=== PATIENT | female | born 1995 | race Caucasian/White ===

== ENCOUNTER 2016-11-20 22:23 | Emergency (ER) | payer MEDICAID ==
[2016-11-20] MEDS ORDERED: Sodium Chloride 0.9% 10 ML Syringe FLUSH PRN (22:30)
[2016-11-20] MEDS ORDERED: Metoclopramide 10 MG/2 ML SDV IVPUSH ONE (22:31)
[2016-11-20] MEDS ORDERED: Sodium Chloride 0.9% 1,000 ML IV SCH (22:45)
[2016-11-20 23:38] LABS: CHLORIDE,CL 103 mmol/L (98-107); SODIUM,NA 137 mmol/L (136-145)
--- NOTE | 2016-11-20 23:39 | EDM.PDOC ---
ED HPI GENERAL MEDICAL PROBLEM - General Chief Complaint: General Stated Complaint: FLU-LIKE SYMPTOMS Time Seen by Provider: 11/20/16 22:26 Source of Information: Reports: Patient, EMS notes reviewed, RN, RN notes reviewed History Limitations: Reports: No limitations - History of Present Illness INITIAL COMMENTS - FREE TEXT/NARRATIVE: Patient is brought to the ED at [facility] with a one day history of vomiting, nausea, chest pain. Patient has not taken any medications for her symptoms. She felt her symptoms would resolve on their own. She states she has vomited several times. No diarrhea. No actual abdominal pain. No focal neurological deficits. No recent travel. Patient was started yesterday on THRT. She takes 50 mg IM every two weeks. The patient states her symptoms began before she started on the hormone replacement. Onset: gradual Onset Date: 11/19/16 - Related Data Allergies Allergy/AdvReac Type Severity Reaction Status Date / Time amitriptyline Allergy Cannot Verified 11/20/16 22:28 Remember Home Meds: Home Meds Acetaminophen [Tylenol] 325 mg PO QID PRN 01/28/16 [History] Citalopram [Celexa] 30 mg PO DAILY 01/28/16 [History] Divalproex Sodium [Depakote] 750 mg PO BEDTIME 01/28/16 [History] Nortriptyline 25 mg PO BEDTIME 01/28/16 [History] Propranolol [Inderal] 10 mg PO BID 01/28/16 [History] buPROPion [Wellbutrin] 100 mg PO DAILY 01/28/16 [History] Baclofen 10 mg PO TID #30 tablet 05/16/16 [Rx] Naproxen [Naproxen] 500 mg PO BID 06/02/16 [History] tiZANidine [Zanaflex] 2 mg PO DAILY 06/02/16 [History] Cyclobenzaprine HCl 10 mg PO Q8HR PRN #30 tablet 06/08/16 [Rx] Citalopram [Celexa] 10 mg PO DAILY 08/24/16 [History] Divalproex Sodium [Depakote] 750 mg PO BEDTIME 08/24/16 [History] Nortriptyline 25 mg PO BEDTIME 08/24/16 [History] Propranolol [Inderal] 20 mg PO ONETIME 08/24/16 [History] buPROPion [Wellbutrin] 75 mg PO BEDTIME 08/24/16 [History] Past Medical History HEENT History: Reports: Impaired vision Gastrointestinal History: Reports: Cholelithiasis 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 Musculoskeletal History: Reports: Back pain, chronic Neurological History: Reports: Headaches, chronic Psychiatric History: Reports: Anxiety, Depression, Emotional problems, Suicidal ideation - Past Surgical History GI Surgical History: Reports: Cholecystectomy Social & Family History - Family History Family Medical History: Noncontributory - Tobacco Use Smoking Status *Q: Never Smoker Second Hand Smoke Exposure: Yes - Caffeine Use Caffeine Use: Reports: None - Recreational Drug Use Recreational Drug Use: No ED ROS GENERAL - Review of Systems Review Of Systems: See Below Constitutional: Denies: fever, chills, weakness HEENT: Reports: No symptoms Respiratory: Denies: shortness of breath, cough Cardiovascular: Reports: Chest pain, Lightheadedness. Denies: Palpitations GI/Abdominal: Reports: Nausea, Vomiting. Denies: Abdominal pain, Diarrhea Skin: Reports: no symptoms Neurological: Denies: dizziness, headache, numbness, paresthesia, tingling ED EXAM, GENERAL - Physical Exam Exam: See Below Exam Limited By: No limitations General Appearance: alert, no apparent distress, obese Eye Exam: bilateral eye: EOMI, normal inspection, PERRL Ears: normal external exam, normal canal, hearing grossly normal, normal TMs Ear Exam: bilateral ear: TM normal Nose: normal inspection, normal mucosa Throat/Mouth: Normal inspection, Normal oropharynx, No airway compromise Head: atraumatic, normocephalic Neck: supple Respiratory/Chest: no respiratory distress, lungs clear, normal breath sounds Cardiovascular: normal peripheral pulses, tachycardia GI/Abdominal: soft, no distention, abnormal bowel sounds: (hyperactive) Neurological: alert, oriented Skin Exam: Warm, Dry, Intact, No rash, Cool, Pallor EKG INTERPRETATION EKG Date: 11/20/16 Time: 22:37 Rhythm: NSR Rate (beats/min): 112 [place]: normal P-wave: present QRS: normal ST-T: normal QT: normal OR/PQ Interval: 0.14 Comparison: no change EKG Interpretation Comments: 1. Sinus Tachycardia Course - Vital Signs Last Recorded V/S: Last Vital Signs Temp 37.7 C 11/20/16 22:29 Pulse 111 H 11/20/16 22:29 Resp 22 H 11/20/16 22:29 BP 128/77 11/20/16 22:29 Pulse Ox - Orders/Labs/Meds Orders: Active Orders 24 hr Category Date Time Status EKG 12 Lead [EKG Documentation Completion] [RC] STAT Care 11/20/16 22:30 Active TRICYCLIC ANTIDEPRESSANTS HAYES Stat Lab 11/21/16 23:17 Received Sodium Chloride 0.9% [Normal Saline] 1,000 ml Med 11/20/16 22:45 Active IV ASDIRECTED Sodium Chloride 0.9% [Saline Flush] Med 11/20/16 22:30 Active 10 ml FLUSH ASDIRECTED PRN Peripheral IV Insertion Adult [OM.PC] Routine Oth 11/20/16 22:30 Ordered Medication Orders Sodium Chloride (Normal Saline) 1,000 mls @ 999 mls/hr IV ASDIRECTED NACHO Last Admin: 11/20/16 22:40 Dose: 999 mls/hr Sodium Chloride (Saline Flush) 10 ml FLUSH ASDIRECTED PRN PRN Reason: Keep Vein Open Labs: Laboratory Tests 11/20/16 11/20/16 11/20/16 Range/Units 22:59 22:59 22:59 WBC 16.4 H (4.0-10.0) x10^3/uL RBC 4.85 (4.00-5.50) x10^6/uL Hgb 14.5 (12.0-16.0) g/dL Hct 42.7 (33.0-47.0) % MCV 88.0 (78.0-93.0) fL MCH 29.9 (26.0-32.0) pg MCHC 34.0 (32.0-36.0) g/dL RDW Coeff of Caro 12.6 (10.0-15.0) % Plt Count 306 (130-400) x10^3/uL Neut % (Auto) 88.3 H (50.0-80.0) % Lymph % (Auto) 5.4 L (25.0-50.0) % [place] % (Auto) 5.7 (2.0-11.0) % Eos % (Auto) 0.5 (0.0-4.0) % Baso % (Auto) 0.1 L (0.2-1.2) % Sodium 137 (136-145) mmol/L Potassium 3.8 (3.5-5.1) mmol/L Chloride 103 (98-107) mmol/L Carbon Dioxide 23 (21-32) mmol/L BUN 10 (7-18) mg/dL Creatinine 1.0 (0.55-1.02) mg/dL Est Cr Clr Drug Dosing 90.53 mL/min Estimated GFR (MDRD) > 60 Glucose 111 H (74-106) mg/dL Lactic Acid 1.4 (0.4-2.0) mmol/L Calcium 9.4 (8.5-10.1) mg/dL Corrected Calcium 9.40 (8.5-10.1) mg/dL Total Bilirubin 0.5 (0.2-1.0) mg/dL AST 51 H (15-37) U/L ALT 96 H (14-59) U/L Alkaline Phosphatase 102 (46-116) U/L Creatine Kinase 125 (26-192) U/L Creatine Kinase Index 1.4 (0.0-4.0) % CK-MB (CK-2) 1.7 (0.0-3.6) ng/mL Troponin I < 0.017 (<=0.056) ng/mL C-Reactive Protein 0.7 (<=0.9) mg/dL Total Protein 8.0 (6.4-8.2) g/dL Albumin 4.0 (3.4-5.0) g/dL Globulin 4.0 Albumin/Globulin Ratio 1.00 Amylase 37 (25-115) U/L Lipase 138 (73-393) U/L Urine Color (YELLOW) Urine Appearance (CLEAR) Urine pH (5.0-8.0) Ur Specific [place] Urine Protein (NEGATIVE) mg/dL Urine Glucose (UA) (NEGATIVE) mg/dL Urine Ketones (NEGATIVE) mg/dL Urine Occult Blood (NEGATIVE) Urine Nitrite (NEGATIVE) Urine Bilirubin (NEGATIVE) Urine Urobilinogen (0.2) EU/dL Ur Leukocyte Esterase (NEGATIVE) Urine RBC (NOT SEEN) /HPF Urine WBC (NOT SEEN) /HPF Ur Squamous Epith Cells (NEGATIVE) /HPF Amorphous Sediment Urine Bacteria (NEGATIVE) /HPF Urine Mucus (NEGATIVE) /LPF Urine Opiates Screen (NEGATIVE) Ur Buprenorphine Scrn (NEGATIVE) Ur Oxycodone Screen (NEGATIVE) Urine Methadone Screen (NEGATIVE) Ur Barbiturates Screen (NEGATIVE) Ur Tricyclics Screen (NEGATIVE) Ur Amphetamine Screen (NEGATIVE) U Methamphetamines Scrn (NEGATIVE) Urine MDMA Screen (NEGATIVE) U Benzodiazepines Scrn (NEGATIVE) U Cocaine Metab Screen (NEGATIVE) U Marijuana (THC) Screen (NEGATIVE) 11/20/16 11/20/16 Range/Units 23:17 23:17 WBC (4.0-10.0) x10^3/uL RBC (4.00-5.50) x10^6/uL Hgb (12.0-16.0) g/dL Hct (33.0-47.0) % MCV (78.0-93.0) fL MCH (26.0-32.0) pg MCHC (32.0-36.0) g/dL RDW Coeff of Caro (10.0-15.0) % Plt Count (130-400) x10^3/uL Neut % (Auto) (50.0-80.0) % Lymph % (Auto) (25.0-50.0) % [place] % (Auto) (2.0-11.0) % Eos % (Auto) (0.0-4.0) % Baso % (Auto) (0.2-1.2) % Sodium (136-145) mmol/L Potassium (3.5-5.1) mmol/L Chloride (98-107) mmol/L Carbon Dioxide (21-32) mmol/L BUN (7-18) mg/dL Creatinine (0.55-1.02) mg/dL Est Cr Clr Drug Dosing mL/min Estimated GFR (MDRD) Glucose (74-106) mg/dL Lactic Acid (0.4-2.0) mmol/L Calcium (8.5-10.1) mg/dL Corrected Calcium (8.5-10.1) mg/dL Total Bilirubin (0.2-1.0) mg/dL AST (15-37) U/L ALT (14-59) U/L Alkaline Phosphatase (46-116) U/L Creatine Kinase (26-192) U/L Creatine Kinase Index (0.0-4.0) % CK-MB (CK-2) (0.0-3.6) ng/mL Troponin I (<=0.056) ng/mL C-Reactive Protein (<=0.9) mg/dL Total Protein (6.4-8.2) g/dL Albumin (3.4-5.0) g/dL Globulin Albumin/Globulin Ratio Amylase (25-115) U/L Lipase (73-393) U/L Urine Color Dark yellow H (YELLOW) Urine Appearance Slightly cloudy H (CLEAR) Urine pH 5.5 (5.0-8.0) Ur Specific [place] >=1.030 Urine Protein Trace H (NEGATIVE) mg/dL Urine Glucose (UA) Negative (NEGATIVE) mg/dL Urine Ketones 15 H (NEGATIVE) mg/dL Urine Occult Blood Negative (NEGATIVE) Urine Nitrite Negative (NEGATIVE) Urine Bilirubin Small H (NEGATIVE) Urine Urobilinogen 0.2 (0.2) EU/dL Ur Leukocyte Esterase Negative (NEGATIVE) Urine RBC 0-5 (NOT SEEN) /HPF Urine WBC 0-5 (NOT SEEN) /HPF Ur Squamous Epith Cells Few H (NEGATIVE) /HPF Amorphous Sediment Few Urine Bacteria Few H (NEGATIVE) /HPF Urine Mucus Many H (NEGATIVE) /LPF Urine Opiates Screen Negative (NEGATIVE) Ur Buprenorphine Scrn Negative (NEGATIVE) Ur Oxycodone Screen Negative (NEGATIVE) Urine Methadone Screen Negative (NEGATIVE) Ur Barbiturates Screen Negative (NEGATIVE) Ur Tricyclics Screen Positive H (NEGATIVE) Ur Amphetamine Screen Negative (NEGATIVE) U Methamphetamines Scrn Negative (NEGATIVE) Urine MDMA Screen Negative (NEGATIVE) U Benzodiazepines Scrn Negative (NEGATIVE) U Cocaine Metab Screen Negative (NEGATIVE) U Marijuana (THC) Screen Negative (NEGATIVE) Meds: Medications Generic Name Dose Route Start Last Admin Trade Name Freq PRN Reason Stop Dose Admin Sodium Chloride 1,000 mls @ 999 mls/hr 11/20/16 22:45 11/20/16 22:40 Normal Saline IV 999 mls/hr ASDIRECTED NACHO Administration Sodium Chloride 10 ml 11/20/16 22:30 Saline Flush FLUSH ASDIRECTED PRN Keep Vein Open Discontinued Medications Generic Name Dose Route Start Last Admin Trade Name Freq PRN Reason Stop Dose Admin Famotidine 20 mg 11/20/16 23:53 Pepcid IVPUSH 11/20/16 23:54 ONETIME ONE Ketorolac Tromethamine 30 mg 11/20/16 23:53 Toradol IVPUSH 11/20/16 23:54 ONETIME ONE Metoclopramide HCl 10 mg 11/20/16 22:31 11/20/16 22:42 Reglan IVPUSH 11/20/16 22:32 10 mg ONETIME ONE Administration Ondansetron HCl 4 mg 11/20/16 23:53 Zofran IVPUSH 11/20/16 23:54 ONETIME ONE Departure - Departure Time of Disposition: 00:06 Disposition: Home, Self-Care 01 Condition: good Clinical Impression: Nausea & vomiting Qualifiers: Vomiting type: unspecified Vomiting Intractability: non-intractable Qualified Code(s): R11.2 - Nausea with vomiting, unspecified Instructions: Nausea and Vomiting, Adult Referrals: Michelle Hernández MD [Primary Care Provider] - Forms: ED Department Discharge Additional Instructions: 1. Stay well hydrated and rest 2. Eat a bland diet; no greasy/fatty foods; let your stomach rest 3. No changes with any medications 4. See your Primary as symptoms warrant - Problem List Review Problem List Initiated/Reviewed/Updated: Yes - My Orders Last 24 Hours: My Active Orders 11/20/16 22:30 EKG 12 Lead [EKG Documentation Completion] [RC] STAT Sodium Chloride 0.9% [Saline Flush] 10 ml FLUSH ASDIRECTED PRN Peripheral IV Insertion Adult [OM.PC] Routine 11/20/16 22:45 Sodium Chloride 0.9% [Normal Saline] 1,000 ml IV ASDIRECTED 11/21/16 23:17 TRICYCLIC ANTIDEPRESSANTS HAYES Stat - Assessment/Plan Last 24 Hours: My Active Orders 11/20/16 22:30 EKG 12 Lead [EKG Documentation Completion] [RC] STAT Sodium Chloride 0.9% [Saline Flush] 10 ml FLUSH ASDIRECTED PRN Peripheral IV Insertion Adult [OM.PC] Routine 11/20/16 22:45 Sodium Chloride 0.9% [Normal Saline] 1,000 ml IV ASDIRECTED 11/21/16 23:17 TRICYCLIC ANTIDEPRESSANTS HAYES Stat
[2016-11-20] MEDS ORDERED: Ondansetron 4 MG/2 ML SDV IVPUSH ONE (23:53)
[2016-11-20] MEDS ORDERED: Ketorolac 30 MG/ML SDV IVPUSH ONE (23:53)
[2016-11-20] MEDS ORDERED: Famotidine 20 MG/2 ML SDV IVPUSH ONE (23:53)
[2016-11-21 02:59] VITALS: BP 132/72
== END 2016-11-21 00:30 | disposition home or self-care (01) ==
LOC: VM.ED 22:23 → SUPCPDRO 22:23 → VM.ED 11-21 00:30
DX: R11.2 Nausea with vomiting, unspecified (principal); F41.9 Anxiety disorder, unspecified; F32.9 Major depressive disorder, single episode, unspecified; Z88.8 Allergy status to other drugs, medicaments and biological substances; Z79.899 Other long term (current) drug therapy; Z90.49 Acquired absence of other specified parts of digestive tract
CPT/HCPCS: 36415; 80053; 80299; 80305; 81001; 82150; 82550; 82553; 83605; 83690; 84484; 85025; 86140; 87804; 93005; 96361; 96374; 96375; 99284; G0480; J1885; J2405; J2765; J7030; S0028

== ENCOUNTER 2016-11-21 18:26 | Emergency (ER) | payer MEDICAID ==
[2016-11-21 18:33] VITALS: BP 114/64
[2016-11-21] MEDS ORDERED: Sodium Chloride 0.9% 10 ML Syringe FLUSH PRN (19:09)
[2016-11-21] MEDS ORDERED: methylPREDNISolone Sodium Succinate 125 MG/2 ML SDV IVPUSH ONE (19:25)
[2016-11-21] MEDS ORDERED: Metoclopramide 10 MG/2 ML SDV IVPUSH ONE (19:25)
[2016-11-21] MEDS ORDERED: Ketorolac 30 MG/ML SDV IVPUSH ONE (19:25)
[2016-11-21] MEDS ORDERED: Ondansetron 4 MG/2 ML SDV IVPUSH ONE (19:25)
[2016-11-21] MEDS ORDERED: Sodium Chloride 0.9% 2,000 ML IV SCH (19:30)
[2016-11-21 20:36] LABS: CHLORIDE,CL 106 mmol/L (98-107); SODIUM,NA 138 mmol/L (136-145)
[2016-11-21] MEDS ORDERED: Potassium Chloride 20 MEQ Tab.ER PO ONE (20:49)
--- NOTE | 2016-11-21 20:56 | EDM.PDOC ---
ED HPI GENERAL MEDICAL PROBLEM - General Chief Complaint: Headache Stated Complaint: FLU SYPMTOMS Time Seen by Provider: 11/21/16 19:03 Source of Information: Reports: Patient, EMS notes reviewed, RN, RN notes reviewed History Limitations: Reports: No limitations - History of Present Illness INITIAL COMMENTS - FREE TEXT/NARRATIVE: Patient presents to the ED at [facility] with multiple complaints again. Patient complains of a headache, chest pain, right lower lateral rib pain, and bilateral leg pain. Symptoms have been linked to URI and viral illness. Testing completed yesterday did not show any acute concerns. Patient continue to have nausea. Patient states her heart feels like it races when she stand up from a lying or seated position. Onset: unknown/unsure - Related Data Allergies Allergy/AdvReac Type Severity Reaction Status Date / Time amitriptyline Allergy Nightmares Verified 11/21/16 18:35 Home Meds: Home Meds Acetaminophen [Tylenol] 325 mg PO QID PRN 01/28/16 [History] Citalopram [Celexa] 30 mg PO BEDTIME 08/24/16 [History] Divalproex Sodium [Depakote] 500 mg PO BEDTIME 08/24/16 [History] Nortriptyline 25 mg PO BEDTIME 08/24/16 [History] Divalproex Sodium [Depakote ER] 750 mg PO BEDTIME 11/21/16 [History] Testosterone Cypionate 50 mg IM WEEKLY 11/21/16 [History] buPROPion [Wellbutrin XL] 150 mg PO BEDTIME 11/21/16 [History] Past Medical History HEENT History: Reports: Impaired vision Gastrointestinal History: Reports: Cholelithiasis 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 Musculoskeletal History: Reports: Back pain, chronic Neurological History: Reports: Headaches, chronic Psychiatric History: Reports: Anxiety, Depression, Emotional problems, Suicidal ideation - Past Surgical History GI Surgical History: Reports: Cholecystectomy Social & Family History - Family History Family Medical History: Noncontributory - Tobacco Use Smoking Status *Q: Never Smoker Second Hand Smoke Exposure: Yes - Caffeine Use Caffeine Use: Reports: None - Recreational Drug Use Recreational Drug Use: No ED ROS GENERAL - Review of Systems Review Of Systems: See Below Constitutional: Denies: fever, chills, weakness HEENT: Reports: Throat pain Respiratory: Reports: shortness of breath. Denies: cough, sputum Cardiovascular: Reports: Chest pain, Palpitations. Denies: Blood pressure problem, Dyspnea on exertion, Edema, Lightheadedness GI/Abdominal: Reports: Nausea, Vomiting. Denies: Abdominal pain, Diarrhea Musculoskeletal: Reports: muscle pain, muscle stiffness Skin: Reports: no symptoms Neurological: Reports: headache. Denies: dizziness, numbness, paresthesia, tingling ED EXAM, GENERAL - Physical Exam Exam: See Below Exam Limited By: No limitations General Appearance: alert, no apparent distress Eye Exam: bilateral eye: EOMI, normal inspection, PERRL Ears: normal external exam, normal canal, hearing grossly normal, normal TMs Ear Exam: bilateral ear: TM normal Nose: normal inspection, normal mucosa, no blood Throat/Mouth: Normal inspection, Normal oropharynx, No airway compromise Head: atraumatic, normocephalic Neck: supple Respiratory/Chest: no respiratory distress, lungs clear, normal breath sounds Cardiovascular: normal peripheral pulses, regular rate, rhythm, no edema, no JVD Peripheral Pulses: 2+: radial (L), radial (R) GI/Abdominal: normal bowel sounds, soft, non tender, no distention Extremities: normal inspection, normal capillary refill Neurological: alert, oriented Skin Exam: Warm, Dry, Intact, Normal color, No rash Course - Vital Signs Last Recorded V/S: Last Vital Signs Temp 37.4 C 11/21/16 18:33 Pulse 108 H 11/21/16 18:33 Resp 14 11/21/16 18:33 BP 114/64 11/21/16 18:33 Pulse Ox 98 11/21/16 18:33 - Orders/Labs/Meds Orders: Active Orders 24 hr Category Date Time Status Chest 2V [CR] Stat Exams 11/21/16 20:14 Taken Head wo Cont [CT] Stat Exams 11/21/16 19:09 Taken CULTURE STREP A CONFIRMATION [RM] Stat Lab 11/21/16 19:40 Results STREP SCRN A RAPID W CULT CONF [RM] Stat Lab 11/21/16 19:40 Results Sodium Chloride 0.9% [Normal Saline] 2,000 ml Med 11/21/16 19:30 Active IV ASDIRECTED Sodium Chloride 0.9% [Saline Flush] Med 11/21/16 19:09 Active 10 ml FLUSH ASDIRECTED PRN Peripheral IV Insertion Adult [OM.PC] Routine Oth 11/21/16 19:09 Ordered Medication Orders Sodium Chloride (Normal Saline) 2,000 mls @ 999 mls/hr IV ASDIRECTED NACHO Last Admin: 11/21/16 19:32 Dose: 999 mls/hr Sodium Chloride (Saline Flush) 10 ml FLUSH ASDIRECTED PRN PRN Reason: Keep Vein Open Labs: Laboratory Tests 11/21/16 11/21/16 Range/Units 20:17 20:17 WBC 5.1 (4.0-10.0) x10^3/uL RBC 4.06 (4.00-5.50) x10^6/uL Hgb 12.1 (12.0-16.0) g/dL Hct 35.9 (33.0-47.0) % MCV 88.4 (78.0-93.0) fL MCH 29.8 (26.0-32.0) pg MCHC 33.7 (32.0-36.0) g/dL RDW Coeff of Caro 12.5 (10.0-15.0) % Plt Count 255 (130-400) x10^3/uL Neut % (Auto) 66.0 (50.0-80.0) % Lymph % (Auto) 22.2 L (25.0-50.0) % [place] % (Auto) 11.4 H (2.0-11.0) % Eos % (Auto) 0.4 (0.0-4.0) % Baso % (Auto) 0.0 L (0.2-1.2) % Sodium 138 (136-145) mmol/L Potassium 3.0 L (3.5-5.1) mmol/L Chloride 106 (98-107) mmol/L Carbon Dioxide 23 (21-32) mmol/L BUN 9 (7-18) mg/dL Creatinine 1.0 (0.55-1.02) mg/dL Est Cr Clr Drug Dosing TNP Estimated GFR (MDRD) > 60 Glucose 91 (74-106) mg/dL Calcium 8.4 L (8.5-10.1) mg/dL Meds: Medications Generic Name Dose Route Start Last Admin Trade Name Freq PRN Reason Stop Dose Admin Sodium Chloride 2,000 mls @ 999 mls/hr 11/21/16 19:30 11/21/16 19:32 Normal Saline IV 999 mls/hr ASDIRECTED NACHO Administration Sodium Chloride 10 ml 11/21/16 19:09 Saline Flush FLUSH ASDIRECTED PRN Keep Vein Open Discontinued Medications Generic Name Dose Route Start Last Admin Trade Name Freq PRN Reason Stop Dose Admin Ketorolac Tromethamine 30 mg 11/21/16 19:25 11/21/16 19:37 Toradol IVPUSH 11/21/16 19:26 30 mg ONETIME ONE Administration Methylprednisolone Sodium Succinate 125 mg 11/21/16 19:25 11/21/16 19:36 Solu-Medrol IVPUSH 11/21/16 19:26 125 mg ONETIME ONE Administration Metoclopramide HCl 10 mg 11/21/16 19:25 11/21/16 19:35 Reglan IVPUSH 11/21/16 19:26 10 mg ONETIME ONE Administration Ondansetron HCl 4 mg 11/21/16 19:25 11/21/16 19:33 Zofran IVPUSH 11/21/16 19:26 4 mg ONETIME ONE Administration Potassium Chloride 40 meq 11/21/16 20:49 11/21/16 21:02 Klor-Con M20 PO 11/21/16 20:50 40 meq ONETIME ONE Administration Departure - Departure Time of Disposition: 21:21 Disposition: Home, Self-Care 01 Condition: good Clinical Impression: Myalgia and myositis, Viral illness Nausea & vomiting Qualifiers: Vomiting type: unspecified Vomiting Intractability: non-intractable Qualified Code(s): R11.2 - Nausea with vomiting, unspecified Instructions: Pain Medicine Instructions, [id number] Referrals: Michelle Hernández MD [Primary Care Provider] - Forms: ED Department Discharge Additional Instructions: 1. Stay well hydrated and rest 2. All your additional tests today were normal; they did not show any emergency 3. Make an appointment to see your Primary this week 4. Continue taking your home medications as prescribed ED Communication - ED Communication Date/Time Date: 11/21/16 Time Called: 20:57 - Discussed Case With (1) Discussed Case With (1): Radiologist (Dr. Donovan Weinstein, Radiology) - Conversation Summary Radiology Reading Discussed with Radiologist: Yes Patient Aware of Amendments fo Care Plan: Yes Summary Comment: CT of Head is negative for any acute pathology. 2V chest xray is normal. - Problem List Review Problem List Initiated/Reviewed/Updated: Yes - My Orders Last 24 Hours: My Active Orders 11/21/16 19:09 Head wo Cont [CT] Stat Sodium Chloride 0.9% [Saline Flush] 10 ml FLUSH ASDIRECTED PRN Peripheral IV Insertion Adult [OM.PC] Routine 11/21/16 19:30 Sodium Chloride 0.9% [Normal Saline] 2,000 ml IV ASDIRECTED 11/21/16 19:40 CULTURE STREP A CONFIRMATION [RM] Stat STREP SCRN A RAPID W CULT CONF [RM] Stat 11/21/16 20:14 Chest 2V [CR] Stat - Assessment/Plan Last 24 Hours: My Active Orders 11/21/16 19:09 Head wo Cont [CT] Stat Sodium Chloride 0.9% [Saline Flush] 10 ml FLUSH ASDIRECTED PRN Peripheral IV Insertion Adult [OM.PC] Routine 11/21/16 19:30 Sodium Chloride 0.9% [Normal Saline] 2,000 ml IV ASDIRECTED 11/21/16 19:40 CULTURE STREP A CONFIRMATION [RM] Stat STREP SCRN A RAPID W CULT CONF [RM] Stat 11/21/16 20:14 Chest 2V [CR] Stat
[2016-11-21] MEDS ORDERED: Take Home: Ondansetron 4 MG Tab.DIS, 2 Tab Pack PO ONE (21:25)
== END 2016-11-21 22:30 | disposition home or self-care (01) ==
LOC: VM.ED 18:26
DX: M60.9 Myositis, unspecified (principal); B34.9 Viral infection, unspecified; R11.2 Nausea with vomiting, unspecified; F41.9 Anxiety disorder, unspecified; F32.9 Major depressive disorder, single episode, unspecified; Z88.8 Allergy status to other drugs, medicaments and biological substances; Z90.49 Acquired absence of other specified parts of digestive tract
CPT/HCPCS: 36415; 70450; 71020; 80048; 85025; 87081; 87880; 96365; 96366; 96375; 99284; A9270; J1885; J2405; J2765; J2930; J7030

== ENCOUNTER 2017-04-17 22:15 | Emergency (ER) | payer MEDICAID ==
--- NOTE | 2017-04-17 23:16 | EDM.PDOC ---
ED HPI GENERAL MEDICAL PROBLEM - General Chief Complaint: General Stated Complaint: BODY HURTS EVERYWHERE, LIGHT HEADED Time Seen by Provider: 04/17/17 23:00 Source of Information: Reports: Patient History Limitations: Reports: No Limitations - History of Present Illness INITIAL COMMENTS - FREE TEXT/NARRATIVE: Patient presents with multiple complaints that started yesterday. He complains of headaches, left lower rib pain, states his brain feels "foggy", seeing spots , chest pain, nausea, diarrhea. No blood in urine or stool. No history of smoking, alcohol, drug abuse. Surgical history includes gall bladder removal. Undergoing gender reassignment. Taking testosterone. Uterus and ovaries intact. Doctor managing this is Dr. Yobani Davidson in [place]. No history of DVT, though he thinks perhaps his grandmother had to take anticoagulation. No chills or fever. Onset Date: 04/16/17 Duration: Getting Worse Location: Reports: Head, Chest, Abdomen Quality: Reports: Ache Severity: Moderate Associated Symptoms: Reports: Chest Pain, Cough, Nausea/Vomiting - Related Data Allergies Allergy/AdvReac Type Severity Reaction Status Date / Time amitriptyline Allergy Nightmares Verified 04/17/17 22:39 Home Meds: Home Meds Citalopram [Celexa] 30 mg PO BEDTIME 08/24/16 [History] Nortriptyline 25 mg PO BEDTIME 08/24/16 [History] Divalproex Sodium [Depakote ER] 750 mg PO BEDTIME 11/21/16 [History] Testosterone Cypionate 50 mg IM ASDIRECTED 11/21/16 [History] buPROPion [Wellbutrin XL] 300 mg PO BEDTIME 11/21/16 [History] Past Medical History HEENT History: Reports: Impaired Vision Gastrointestinal History: Reports: Cholelithiasis 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 Musculoskeletal History: Reports: Back Pain, Chronic Neurological History: Reports: Headaches, Chronic Psychiatric History: Reports: Anxiety, Depression, Emotional Problems, Suicidal Ideation - Past Surgical History GI Surgical History: Reports: Cholecystectomy Social & Family History - Family History Family Medical History: Noncontributory - Tobacco Use Smoking Status *Q: Never Smoker Second Hand Smoke Exposure: Yes - Caffeine Use Caffeine Use: Reports: None - Recreational Drug Use Recreational Drug Use: No ED ROS GENERAL - Review of Systems Review Of Systems: See Below Constitutional: Reports: No Symptoms HEENT: Reports: No Symptoms Respiratory: Reports: Shortness of Breath Cardiovascular: Reports: Chest Pain GI/Abdominal: Reports: Abdominal Pain, Diarrhea, Nausea, Vomiting : Reports: No Symptoms Musculoskeletal: Reports: No Symptoms Skin: Reports: No Symptoms Neurological: Reports: Dizziness, Headache, Other (feels like "brain is shutting down") Psychiatric: Reports: Depression Hematologic/Lymphatic: Reports: No Symptoms Immunologic: Reports: No Symptoms ED EXAM, GENERAL - Physical Exam Exam: See Below Exam Limited By: No Limitations General Appearance: Alert, WD/WN, No Apparent Distress Eye Exam: Bilateral Eye: EOMI, PERRL Ears: Normal TMs Nose: Normal Inspection Throat/Mouth: Normal Inspection, Normal Lips, Normal Oropharynx, Normal Voice, No Airway Compromise Head: Atraumatic, Normocephalic Neck: Normal Inspection, Supple, Non-Tender, Full Range of Motion Respiratory/Chest: No Respiratory Distress, Lungs Clear, Normal Breath Sounds, No Accessory Muscle Use, Chest Non-Tender Cardiovascular: Normal Peripheral Pulses, Regular Rate, Rhythm, No Edema, No Murmur Peripheral Pulses: 2+: Posterior Tibial (L), Posterior Tibial (R), Dorsalis Pedis (L), Dorsalis Pedis (R) GI/Abdominal: Normal Bowel Sounds, Soft, Non-Tender, No Organomegaly, No Distention, No Mass Extremities: Normal Inspection, Normal Range of Motion, Non-Tender, No Pedal Edema, Normal Capillary Refill Neurological: Alert, Oriented, CN II-XII Intact, Normal Cognition, Normal Gait, Normal Reflexes, No Motor/Sensory Deficits Psychiatric: Depressed Mood, Flat Affect Skin Exam: Warm, Dry, Intact, Normal Color, No Rash Lymphatic: No Adenopathy Course - Orders/Labs/Meds Orders: Active Orders 24 hr Category Date Time Status EKG Documentation Completion [RC] ROUTINE Care 04/17/17 23:22 Ordered Chest 2V [CR] Stat Exams 04/17/17 23:22 Ordered C-REACTIVE PROTEIN [CHEM] Stat Lab 04/17/17 23:22 Ordered CBC WITH AUTO DIFF [HEME] Stat Lab 04/17/17 23:22 Ordered CK W CKMB [CHEM] Stat Lab 04/17/17 23:22 Ordered COMPREHENSIVE METABOLIC PN,CMP [CHEM] Stat Lab 04/17/17 23:22 Ordered D Dimer [D-DIMER QUANTITATIVE] [COAG] Stat Lab 04/17/17 23:24 Ordered TROPONIN I [CHEM] Stat Lab 04/17/17 23:22 Ordered WEST NILE VIRUS IGM [REF] Routine Lab 04/17/17 23:22 Ordered Sodium Chloride 0.9% [Normal Saline] 1,000 ml Med 04/17/17 23:22 Ordered IV ONETIME Sodium Chloride 0.9% [Saline Flush] Med 04/17/17 23:22 Ordered 10 ml FLUSH ASDIRECTED PRN Saline Lock Insert [OM.PC] Routine Oth 04/17/17 23:22 Ordered Medication Orders Sodium Chloride (Normal Saline) 1,000 mls @ 999 mls/hr IV ONETIME ONE Stop: 04/18/17 00:22 Sodium Chloride (Saline Flush) 10 ml FLUSH ASDIRECTED PRN PRN Reason: Keep Vein Open Meds: Medications Generic Name Dose Route Start Last Admin Trade Name Freq PRN Reason Stop Dose Admin Sodium Chloride 1,000 mls @ 999 mls/hr 04/17/17 23:22 Normal Saline IV 04/18/17 00:22 ONETIME ONE Sodium Chloride 10 ml 04/17/17 23:22 Saline Flush FLUSH ASDIRECTED PRN Keep Vein Open Departure - Departure Time of Disposition: 01:30 Disposition: Home, Self-Care 01 Condition: Good Clinical Impression: Bacterial URI - Discharge Information Instructions: Upper Respiratory Infection, Adult, [id number] Additional Instructions: Stay well hydrated and follow up with your primary provider for further symptom management This is a non emergent visit and should be seen by Dr. Hernández All labs and tests are grossly normal with the exception of some infection markers Please call us with any questions or concerns - Problem List Review Problem List Initiated/Reviewed/Updated: Yes - My Orders Last 24 Hours: My Active Orders 04/17/17 23:22 EKG Documentation Completion [RC] ROUTINE Chest 2V [CR] Stat C-REACTIVE PROTEIN [CHEM] Stat CBC WITH AUTO DIFF [HEME] Stat CK W CKMB [CHEM] Stat COMPREHENSIVE METABOLIC PN,CMP [CHEM] Stat TROPONIN I [CHEM] Stat WEST NILE VIRUS IGM [REF] Routine Sodium Chloride 0.9% [Normal Saline] 1,000 ml IV ONETIME Sodium Chloride 0.9% [Saline Flush] 10 ml FLUSH ASDIRECTED PRN Saline Lock Insert [OM.PC] Routine 04/17/17 23:24 D Dimer [D-DIMER QUANTITATIVE] [COAG] Stat - Assessment/Plan Last 24 Hours: My Active Orders 04/17/17 23:22 EKG Documentation Completion [RC] ROUTINE Chest 2V [CR] Stat C-REACTIVE PROTEIN [CHEM] Stat CBC WITH AUTO DIFF [HEME] Stat CK W CKMB [CHEM] Stat COMPREHENSIVE METABOLIC PN,CMP [CHEM] Stat TROPONIN I [CHEM] Stat WEST NILE VIRUS IGM [REF] Routine Sodium Chloride 0.9% [Normal Saline] 1,000 ml IV ONETIME Sodium Chloride 0.9% [Saline Flush] 10 ml FLUSH ASDIRECTED PRN Saline Lock Insert [OM.PC] Routine 04/17/17 23:24 D Dimer [D-DIMER QUANTITATIVE] [COAG] Stat Assessment:: bacterial upper respiratory infection Plan: Stay well hydrated and follow up with your primary provider for further symptom management This is a non emergent visit and should be seen by Dr. Hernández All labs and tests are grossly normal with the exception of some infection markers Please call us with any questions or concerns
[2017-04-17] MEDS ORDERED: Sodium Chloride 0.9% 10 ML Syringe FLUSH PRN (23:22)
[2017-04-17] MEDS ORDERED: Sodium Chloride 0.9% 1,000 ML IV ONE (23:22)
[2017-04-18 00:30] LABS: CHLORIDE,CL 103 mmol/L (98-107); SODIUM,NA 141 mmol/L (136-145)
[2017-04-18] MEDS ORDERED: Amoxicillin 875 MG Tab PO ONE (01:20)
[2017-04-18 07:54] VITALS: BP 127/67
== END 2017-04-18 01:40 | disposition home or self-care (01) ==
LOC: VM.ED 22:15
DX: J06.9 Acute upper respiratory infection, unspecified (principal); F41.9 Anxiety disorder, unspecified; F32.9 Major depressive disorder, single episode, unspecified; Z79.899 Other long term (current) drug therapy; Z90.49 Acquired absence of other specified parts of digestive tract
CPT/HCPCS: 36415; 71020; 80053; 81241; 82550; 82553; 84484; 85025; 85240; 85250; 85379; 86140; 86788; 93005; 96360; 99285; A9270; J7030

== ENCOUNTER 2017-10-31 20:33 | Emergency (ER) | payer MEDICAID ==
[2017-10-31 20:42] VITALS: BP 116/60
--- NOTE | 2017-11-01 01:13 | EDM.PDOC ---
ED HPI GENERAL MEDICAL PROBLEM - General Chief Complaint: Lower Extremity Injury/Pain Time Seen by Provider: 10/31/17 20:33 Source of Information: Reports: Patient History Limitations: Reports: No Limitations - History of Present Illness INITIAL COMMENTS - FREE TEXT/NARRATIVE: Pt. compains of pain to L knee for 2 months. She states that she hit her L knee on the dash when she was attempting to get into the car. She states that discomfort is been worse over the past month. Has not iced the jointed or modified her activity. She states that she does take naproxen occasionally which has helped with the pain. Location: Reports: Lower Extremity, Left Quality: Reports: Sharp, Throbbing Severity: Moderate Improves with: Reports: Rest Worsens with: Reports: Movement Left Knee Pain Score (Numeric/FACES): 5 - Related Data Allergies Allergy/AdvReac Type Severity Reaction Status Date / Time amitriptyline Allergy Nightmares Verified 10/31/17 20:44 Home Meds: Home Meds Citalopram [Celexa] 30 mg PO BEDTIME 08/24/16 [History] Nortriptyline 25 mg PO BEDTIME 08/24/16 [History] Divalproex Sodium [Depakote ER] 750 mg PO BEDTIME 11/21/16 [History] Testosterone Cypionate 100 mg IM ASDIRECTED 11/21/16 [History] buPROPion [Wellbutrin XL] 300 mg PO BEDTIME 11/21/16 [History] Amoxicillin [Amoxil] 875 mg PO BID 10/31/17 [History] Naproxen [Naproxen] 500 mg PO Q12H 10/31/17 [History] Nitrofurantoin Talbot/Macrocryst [Nitrofurantoin Talbot-MCR] 100 mg PO BID 10/31/17 [History] Past Medical History HEENT History: Reports: Impaired Vision Gastrointestinal History: Reports: Cholelithiasis 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 Musculoskeletal History: Reports: Back Pain, Chronic Neurological History: Reports: Headaches, Chronic Psychiatric History: Reports: Anxiety, Depression, Emotional Problems, Suicidal Ideation - Past Surgical History GI Surgical History: Reports: Cholecystectomy Social & Family History - Family History Family Medical History: Noncontributory - Tobacco Use Smoking Status *Q: Never Smoker Second Hand Smoke Exposure: Yes - Caffeine Use Caffeine Use: Reports: None - Recreational Drug Use Recreational Drug Use: No Review of Systems - Review of Systems Review Of Systems: See Below Constitutional: Reports: No Symptoms Musculoskeletal: Reports: Joint Pain (L knee), Joint Swelling Neurological: Reports: No Symptoms ED EXAM, GENERAL - Physical Exam Exam: See Below Exam Limited By: No Limitations General Appearance: Alert, WD/WN, No Apparent Distress Peripheral Pulses: 3+: Posterior Tibial (L), Posterior Tibial (R) Extremities: Leg Pain (L knee. No crepitus. No ecchymosis. No deformity noted.) Course - Vital Signs Last Recorded V/S: Last Vital Signs Temp 36.9 C 10/31/17 20:41 Pulse 110 H 10/31/17 20:41 Resp 16 10/31/17 20:41 BP 116/60 10/31/17 20:41 Pulse Ox 99 10/31/17 20:41 - Orders/Labs/Meds Orders: Active Orders 24 hr Category Date Time Status Knee 3V Lt [CR] Stat Exams 10/31/17 20:50 Taken - Radiology Interpretation Free Text/Narrative:: Radiographs of the knee were negative. Departure - Departure Time of Disposition: 21:34 Disposition: Home, Self-Care 01 Condition: Good Clinical Impression: Derangement of knee, Knee meniscus pain - Discharge Information Instructions: Knee Pain, Adult, Meniscus Tear With Phase I Rehab-Sports[facility] Referrals: Michelle Hernández MD [Primary Care Provider] - Forms: ED Department Discharge Additional Instructions: Naproxen 500mg twice daily. Ice knee for 15 min every 1-2 hours. Obtain a knee compression sleeve to wear to help with swelling and discomfort. Follow-up with Dr. Hernández if not improving. - My Orders Last 24 Hours: My Active Orders 10/31/17 20:50 Knee 3V Lt [CR] Stat - Assessment/Plan Last 24 Hours: My Active Orders 10/31/17 20:50 Knee 3V Lt [CR] Stat
== END 2017-10-31 21:34 | disposition home or self-care (01) ==
LOC: VM.ED 20:33
DX: M23.307 Other meniscus derangements, unspecified meniscus, left knee (principal); Z88.8 Allergy status to other drugs, medicaments and biological substances
CPT/HCPCS: 73562-LT; 99283

== ENCOUNTER 2018-10-07 13:46 | Emergency (ER) | payer MEDICAID ==
[2018-10-07 14:05] VITALS: BP 119/53
[2018-10-07] MEDS ORDERED: Take Home: Acetaminophen/HYDROcodone 325-5 MG, 5 Tab Pack PO ONE (14:05)
[2018-10-07] MEDS ORDERED: Take Home: Amoxicillin/Clavulanate K 875-125 MG Tab, 2 Tab Pack PO ONE (14:05)
--- NOTE | 2018-10-07 20:59 | EDM.PDOC ---
ED HPI GENERAL MEDICAL PROBLEM - General Chief Complaint: ENT Problem Stated Complaint: TOOTH PAIN Time Seen by Provider: 10/07/18 14:04 Source of Information: Reports: Patient History Limitations: Reports: No Limitations - History of Present Illness INITIAL COMMENTS - FREE TEXT/NARRATIVE: Pt. presents to ER with complaints of dental pain. States that the pain is on the left side on the bottom. She states that she has been experiencing this discomfort for several days. She has not been seen by a dentist because she doesn't have dental insurance. No fever or chills. No chest pain or shortness of breath. No difficulty swallowing or managing secretions. Onset: Today Onset Date: 10/03/18 Location: Reports: Face Quality: Reports: Ache, Throbbing Severity: Moderate Left Lower Gums Pain Score (Numeric/FACES): 7 - Related Data Allergies Allergy/AdvReac Type Severity Reaction Status Date / Time amitriptyline Allergy Nightmares Verified 03/10/18 19:28 Home Meds: Home Meds Citalopram [Celexa] 40 mg PO BEDTIME 08/24/16 [History] Nortriptyline 25 mg PO BEDTIME 08/24/16 [History] Divalproex Sodium [Depakote ER] 750 mg PO BEDTIME 11/21/16 [History] Testosterone Cypionate 100 mg IM ASDIRECTED 11/21/16 [History] buPROPion [Wellbutrin XL] 300 mg PO BEDTIME 11/21/16 [History] Naproxen 500 mg PO Q12H 10/31/17 [History] Past Medical History HEENT History: Reports: Impaired Vision Gastrointestinal History: Reports: Cholelithiasis 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 Musculoskeletal History: Reports: Back Pain, Chronic Neurological History: Reports: Headaches, Chronic, Migraines Psychiatric History: Reports: Anxiety, Depression, Emotional Problems, Suicidal Ideation - Past Surgical History HEENT Surgical History: Reports: Adenoidectomy, Tonsillectomy GI Surgical History: Reports: Cholecystectomy Musculoskeletal Surgical History: Reports: Other (See Below) Other Musculoskeletal Surgeries/Procedures:: back surgery Social & Family History - Family History Family Medical History: Noncontributory - Tobacco Use Smoking Status *Q: Unknown Ever Smoked - Caffeine Use Caffeine Use: Reports: None - Recreational Drug Use Recreational Drug Use: Yes Drug Use in Last 12 Months: Yes Recreational Drug Type: Reports: Marijuana/Hashish ED ROS GENERAL - Review of Systems Review Of Systems: See Below Constitutional: Reports: No Symptoms HEENT: Reports: Dental Pain Respiratory: Reports: No Symptoms Cardiovascular: Reports: No Symptoms Endocrine: Reports: No Symptoms GI/Abdominal: Reports: No Symptoms : Reports: No Symptoms Musculoskeletal: Reports: No Symptoms Skin: Reports: No Symptoms Neurological: Reports: No Symptoms Psychiatric: Reports: No Symptoms Hematologic/Lymphatic: Reports: No Symptoms Immunologic: Reports: No Symptoms ED EXAM, GENERAL - Physical Exam Exam: See Below Exam Limited By: No Limitations General Appearance: Alert, WD/WN, No Apparent Distress Eye Exam: Bilateral Eye: EOMI, Normal Fundi, Normal Inspection, PERRL Ears: Normal External Exam, Normal Canal, Hearing Grossly Normal, Normal TMs Ear Exam: Bilateral Ear: Auricle Normal, Canal Normal Nose: Normal Inspection, Normal Mucosa, No Blood Throat/Mouth: Normal Inspection, Normal Lips, Normal Teeth, Normal Gums, Normal Oropharynx, Normal Voice, No Airway Compromise Head: Atraumatic, Normocephalic Neck: Normal Inspection, Supple, Non-Tender, Full Range of Motion Respiratory/Chest: No Respiratory Distress, Lungs Clear, Normal Breath Sounds, No Accessory Muscle Use, Chest Non-Tender Cardiovascular: Normal Peripheral Pulses, Regular Rate, Rhythm, No Edema, No Gallop, No JVD, No Murmur, No Rub Neurological: Alert, Oriented, CN II-XII Intact, Normal Cognition, Normal Gait, Normal Reflexes, No Motor/Sensory Deficits Psychiatric: Normal Affect, Normal Mood Skin Exam: Warm, Dry, Intact, Normal Color, No Rash Course - Vital Signs Last Recorded V/S: Last Vital Signs Temp 36.8 C 10/07/18 13:46 Pulse 110 H 10/07/18 13:46 Resp 16 10/07/18 13:46 BP 119/53 L 10/07/18 13:46 Pulse Ox 97 10/07/18 13:46 - Orders/Labs/Meds Meds: Medications Discontinued Medications Generic Name Dose Route Start Last Admin Trade Name Freq PRN Reason Stop Dose Admin Hydrocodone Bitart/Acetaminophen 2 packet 10/07/18 14:05 10/07/18 14:20 Take Home: Acetam/Hydrocodon 325-5 Mg, 5 Pack PO 10/07/18 14:06 2 packet ONETIME ONE Administration Amoxicillin/Clavulanate Potassium 2 packet 10/07/18 14:05 10/07/18 14:20 Take Home: Amox/Clavulanate 875-12, 2 Tab Pac PO 10/07/18 14:06 2 packet ONETIME ONE Administration Departure - Departure Time of Disposition: 14:22 Disposition: Home, Self-Care 01 Clinical Impression: Dental abscess - Discharge Information Instructions: Acetaminophen; Hydrocodone tablets or capsules, Amoxicillin; Clavulanic Acid tablets, Dental Abscess, [id number], Dental Abscess, Probiotics Referrals: Michelle Hernández MD [Primary Care Provider] - Forms: ED Department Discharge Additional Instructions: Augmentin 875mg 1 twice daily for 10 days Spencer 5/325mg 1 every 6 hours Ibuprofen 600mg every 6 hours for pain Follow-up with Dentist in 10-14 days. - Assessment/Plan Plan: Augmentin 875mg 1 twice daily for 10 days Spencer 5/325mg 1 every 6 hours Ibuprofen 600mg every 6 hours for pain Follow-up with Dentist in 10-14 days.
== END 2018-10-07 14:22 | disposition home or self-care (01) ==
LOC: VM.ED 13:46
DX: K04.7 Periapical abscess without sinus (principal); F41.9 Anxiety disorder, unspecified; F32.9 Major depressive disorder, single episode, unspecified; Z88.8 Allergy status to other drugs, medicaments and biological substances
CPT/HCPCS: 99282; A9270

== ENCOUNTER 2019-05-17 07:05 | Emergency (ER) | payer MEDICAID ==
[2019-05-17] MEDS ORDERED: Sodium Chloride 0.9% 10 ML Syringe FLUSH PRN (08:01)
[2019-05-17] MEDS ORDERED: Ondansetron 4 MG/2 ML SDV IVPUSH ONE (08:02)
[2019-05-17] MEDS ORDERED: GI Cocktail Oral Solution 30 ML PO ONE (08:03)
[2019-05-17 08:23] LABS: CHLORIDE,CL 103 mmol/L (98-107); SODIUM,NA 141 mmol/L (136-145)
[2019-05-17 08:25] LABS: ANION GAP 15.8 mmol/L (10-20)
[2019-05-17] MEDS ORDERED: Lactated Ringers 1,000 ML IV ONE (09:44)
--- NOTE | 2019-05-17 09:57 | CR ---
[id number] RAD/RAD Abdomen Flat Plate 1V Exam: RAD Abdomen Flat Plate 1V Clinical Data: ABDOMINAL PAIN COMPARISON: NO PREVIOUS SIMILAR EXAM IS AVAILABLE FINDINGS: Abundant fecal matter is seen in the colon There is no bowel obstruction There is no organomegaly or pathologic calcification IMPRESSION: SIGNIFICANT FECAL VOLUME Will Wu MD 05/17/19 0956 Thank you for allowing us to participate in the care of your patient.
[2019-05-17] MEDS ORDERED: Magnesium Citrate Solution 296 ML Bottle PO ONE (10:09)
--- NOTE | 2019-05-17 10:17 | EDM.PDOC ---
ED HPI GENERAL MEDICAL PROBLEM - General Stated Complaint: TROUBLE BREATHING Time Seen by Provider: 05/17/19 07:10 Source of Information: Reports: Patient History Limitations: Reports: No Limitations - History of Present Illness INITIAL COMMENTS - FREE TEXT/NARRATIVE: Pt presents c/o abd pain causing pain when breathing. Pt states has not had bm as of 3 days ago. States that is normal for them. Quality: Reports: Ache Severity: Moderate Improves with: Reports: None Worsens with: Reports: None - Related Data Allergies Allergy/AdvReac Type Severity Reaction Status Date / Time amitriptyline Allergy Nightmares Verified 03/10/18 19:28 Home Meds: Home Meds Citalopram [Celexa] 40 mg PO BEDTIME 08/24/16 [History] Nortriptyline 25 mg PO BEDTIME 08/24/16 [History] Divalproex Sodium [Depakote ER] 750 mg PO BEDTIME 11/21/16 [History] Testosterone Cypionate 100 mg IM ASDIRECTED 11/21/16 [History] buPROPion [Wellbutrin XL] 300 mg PO BEDTIME 11/21/16 [History] Naproxen 500 mg PO Q12H 10/31/17 [History] Past Medical History HEENT History: Reports: Impaired Vision Gastrointestinal History: Reports: Cholelithiasis 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 Musculoskeletal History: Reports: Back Pain, Chronic Neurological History: Reports: Headaches, Chronic, Migraines Psychiatric History: Reports: Anxiety, Depression, Emotional Problems, Suicidal Ideation - Past Surgical History HEENT Surgical History: Reports: Adenoidectomy, Tonsillectomy GI Surgical History: Reports: Cholecystectomy Musculoskeletal Surgical History: Reports: Other (See Below) Other Musculoskeletal Surgeries/Procedures:: back surgery Social & Family History - Family History Family Medical History: Noncontributory - Caffeine Use Caffeine Use: Reports: None ED ROS GENERAL - Review of Systems Review Of Systems: See Below Constitutional: Reports: No Symptoms HEENT: Reports: No Symptoms Respiratory: Reports: No Symptoms Cardiovascular: Reports: No Symptoms Endocrine: Reports: No Symptoms GI/Abdominal: Reports: Abdominal Pain : Reports: No Symptoms Musculoskeletal: Reports: No Symptoms Skin: Reports: No Symptoms Neurological: Reports: No Symptoms Psychiatric: Reports: No Symptoms Hematologic/Lymphatic: Reports: No Symptoms Immunologic: Reports: No Symptoms ED EXAM, GI/ABD - Physical Exam Exam: See Below Text/Narrative:: kub noted moderate stool in the colon no bowel obstruction Exam Limited By: No Limitations General Appearance: Alert, WD/WN, No Apparent Distress Eyes: Bilateral: Normal Appearance Ears: Normal External Exam Throat/Mouth: Normal Inspection Respiratory/Chest: No Respiratory Distress, Lungs Clear Cardiovascular: Normal Peripheral Pulses, Regular Rate, Rhythm GI/Abdominal Exam: Soft, Tender, Other (right side tenderness, decreased bowel sounds ) Back Exam: Normal Inspection Extremities: Normal Inspection Neurological: Alert, Oriented Psychiatric: Normal Affect Skin Exam: Warm, Dry, Intact Course - Orders/Labs/Meds Orders: Active Orders 24 hr Category Date Time Status UA RFX PRASAD AND CULT IF INDIC [URIN] Stat Lab 05/17/19 08:02 Ordered Sodium Chloride 0.9% [Saline Flush] Med 05/17/19 08:01 Active 10 ml FLUSH ASDIRECTED PRN Peripheral IV Insertion Adult [OM.PC] Routine Oth 05/17/19 08:01 Ordered Medication Orders Sodium Chloride (Saline Flush) 10 ml FLUSH ASDIRECTED PRN PRN Reason: Keep Vein Open Labs: Laboratory Tests 05/17/19 05/17/19 Range/Units 07:50 07:50 WBC 7.1 (4.0-10.0) x10^3/uL RBC 5.12 (4.00-5.50) x10^6/uL Hgb 15.5 D (12.0-16.0) g/dL Hct 45.7 (33.0-47.0) % MCV 89.3 D (78.0-93.0) fL MCH 30.3 (26.0-32.0) pg MCHC 33.9 (32.0-36.0) g/dL RDW Coeff of Caro 12.9 (10.0-15.0) % Plt Count 328 (130-400) x10^3/uL Neut % (Auto) 33.3 L (50.0-80.0) % Lymph % (Auto) 54.4 H (25.0-50.0) % [place] % (Auto) 10.6 (2.0-11.0) % Eos % (Auto) 1.6 (0.0-4.0) % Baso % (Auto) 0.1 L (0.2-1.2) % Sodium 141 (136-145) mmol/L Potassium 3.8 (3.5-5.1) mmol/L Chloride 103 (98-107) mmol/L Carbon Dioxide 26 (21-32) mmol/L Anion Gap 15.8 (10-20) mmol/L BUN 6 L (7-18) mg/dL Creatinine 1.0 (0.55-1.02) mg/dL Est Cr Clr Drug Dosing TNP Estimated GFR (MDRD) > 60 Glucose 91 (74-106) mg/dL Calcium 9.4 (8.5-10.1) mg/dL Corrected Calcium 9.56 (8.5-10.1) mg/dL Total Bilirubin 0.4 (0.2-1.0) mg/dL AST 36 (15-37) U/L ALT 69 H (14-59) U/L Alkaline Phosphatase 79 (46-116) U/L Total Protein 7.2 (6.4-8.2) g/dL Albumin 3.8 (3.4-5.0) g/dL Globulin 3.4 Albumin/Globulin Ratio 1.12 Meds: Medications Generic Name Dose Route Start Last Admin Trade Name Freq PRN Reason Stop Dose Admin Sodium Chloride 10 ml 05/17/19 08:01 Saline Flush FLUSH ASDIRECTED PRN Keep Vein Open Discontinued Medications Generic Name Dose Route Start Last Admin Trade Name Freq PRN Reason Stop Dose Admin Al Hydroxide/Mg Hydroxide 30 ml 05/17/19 08:03 05/17/19 08:16 Gi Cocktail PO 05/17/19 08:04 30 ml ONETIME ONE Administration Lactated Ringer's 1,000 mls @ 999 drops/min 05/17/19 09:44 05/17/19 09:54 Ringers, Lactated IV 05/17/19 09:59 999 drops/min ONETIME ONE Administration Magnesium Citrate 296 ml 05/17/19 10:09 Citrate Of Magnesia PO 05/17/19 10:10 ONETIME ONE Ondansetron HCl 4 mg 05/17/19 08:02 05/17/19 08:16 Zofran IVPUSH 05/17/19 08:03 4 mg ONETIME ONE Administration Departure - Departure Time of Disposition: 10:22 Disposition: Home, Self-Care 01 Clinical Impression: Constipation - Discharge Information Instructions: Constipation, Adult Referrals: Micehlle Hernández MD [Primary Care Provider] - - My Orders Last 24 Hours: My Active Orders 05/17/19 08:01 Sodium Chloride 0.9% [Saline Flush] 10 ml FLUSH ASDIRECTED PRN Peripheral IV Insertion Adult [OM.PC] Routine 05/17/19 08:02 UA RFX PRASAD AND CULT IF INDIC [URIN] Stat - Assessment/Plan Last 24 Hours: My Active Orders 05/17/19 08:01 Sodium Chloride 0.9% [Saline Flush] 10 ml FLUSH ASDIRECTED PRN Peripheral IV Insertion Adult [OM.PC] Routine 05/17/19 08:02 UA RFX PRASAD AND CULT IF INDIC [URIN] Stat
[2019-05-17 12:23] VITALS: BP 146/67
== END 2019-05-17 10:50 | disposition home or self-care (01) ==
LOC: VM.ED 07:05
DX: K59.00 Constipation, unspecified (principal); Z88.8 Allergy status to other drugs, medicaments and biological substances
CPT/HCPCS: 74018; 80053; 85025; 96361; 96374; 99284; A9270; J2405; J7120

== ENCOUNTER 2019-09-22 15:47 | Emergency (ER) | payer MEDICAID ==
[2019-09-22 16:15] VITALS: BP 131/79; PULSE 117
--- NOTE | 2019-09-22 16:26 | EDM.PDOC ---
ED HPI GENERAL MEDICAL PROBLEM - General Chief Complaint: Upper Extremity Injury/Pain Stated Complaint: WRIST Time Seen by Provider: 09/22/19 16:15 Source of Information: Reports: Patient History Limitations: Reports: No Limitations - History of Present Illness INITIAL COMMENTS - FREE TEXT/NARRATIVE: Patient comes into the emergency department with complaints of right wrist discomfort. Patient states that he was getting up out of bed and was using his arm for support. He states he felt the popping sensation in the right wrist with pain immediately. He states this did happen 2 or 3 weeks ago as well, but the symptoms resolved on their own. He was looking for a wrist brace at home and his mother stated that he should have an x-ray completed in the emergency department. Patient denies any other injury to that particular wrist. He also denies taking any medications or providing ice over the area. She describes it as a throbbing sensation. He states that it does feel better when he is not moving it and has noticed more discomfort when he does try to move it.. Onset: Sudden Location: Reports: Upper Extremity, Right Quality: Reports: Stabbing, Throbbing Severity: Mild Improves with: Reports: Immobilization, Rest Worsens with: Reports: Movement Associated Symptoms: Reports: No Other Symptoms Right Wrist Pain Score (Numeric/FACES): 8 - Related Data Allergies Allergy/AdvReac Type Severity Reaction Status Date / Time amitriptyline Allergy Nightmares Verified 09/22/19 16:10 Home Meds: Home Meds Citalopram [Celexa] 40 mg PO BEDTIME 08/24/16 [History] Nortriptyline 25 mg PO BEDTIME 08/24/16 [History] Divalproex Sodium [Depakote ER] 750 mg PO BEDTIME 11/21/16 [History] Testosterone Cypionate 100 mg IM ASDIRECTED 11/21/16 [History] buPROPion [Wellbutrin XL] 300 mg PO BEDTIME 11/21/16 [History] Naproxen 500 mg PO Q12H 10/31/17 [History] Past Medical History HEENT History: Reports: Impaired Vision Gastrointestinal History: Reports: Cholelithiasis 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 Musculoskeletal History: Reports: Back Pain, Chronic Neurological History: Reports: Headaches, Chronic, Migraines Psychiatric History: Reports: Anxiety, Depression, Emotional Problems, Suicidal Ideation - Past Surgical History HEENT Surgical History: Reports: Adenoidectomy, Tonsillectomy GI Surgical History: Reports: Cholecystectomy Musculoskeletal Surgical History: Reports: Other (See Below) Other Musculoskeletal Surgeries/Procedures:: back surgery Social & Family History - Family History Family Medical History: Noncontributory - Tobacco Use Smoking Status *Q: Never Smoker - Caffeine Use Caffeine Use: Reports: None - Recreational Drug Use Recreational Drug Use: No Review of Systems - Review of Systems Review Of Systems: Comprehensive ROS is negative, except as noted in HPI. Constitutional: Reports: No Symptoms Eyes: Reports: No Symptoms Ears: Reports: No Symptoms Nose: Reports: No Symptoms Mouth/Throat: Reports: No Symptoms Respiratory: Reports: No Symptoms Cardiovascular: Reports: No Symptoms GI/Abdominal: Reports: No Symptoms Genitourinary: Reports: No Symptoms Skin: Reports: No Symptoms ED EXAM, GENERAL - Physical Exam Exam: See Below Exam Limited By: No Limitations General Appearance: Alert, WD/WN, No Apparent Distress Respiratory/Chest: No Respiratory Distress, No Accessory Muscle Use, Chest Non- Tender Cardiovascular: Normal Peripheral Pulses, Regular Rate, Rhythm, No Edema Peripheral Pulses: 4+: Radial (L), Radial (R) Extremities: Normal Inspection, No Pedal Edema, Normal Capillary Refill, Other ( right wrist- mild swelling. no redness, warmth, or ecchymosis noted. ROM intact but painful. CMS intact) Neurological: Alert, Oriented Skin Exam: Warm, Dry, Intact, Normal Color Course - Vital Signs Last Recorded V/S: Last Vital Signs Temp 37.7 C 09/22/19 16:11 Pulse 117 H 09/22/19 16:11 Resp 16 09/22/19 16:11 BP 131/79 09/22/19 16:11 Pulse Ox 98 09/22/19 16:11 - Orders/Labs/Meds Orders: Active Orders 24 hr Category Date Time Status Wrist Comp Min 3V Bi [CR] Stat Exams 09/22/19 16:20 Ordered Departure - Departure Time of Disposition: 17:00 Disposition: Home, Self-Care 01 Condition: Good Clinical Impression: Strain of right wrist Qualifiers: Encounter type: initial encounter Qualified Code(s): S66.911A - Strain of unspecified muscle, fascia and tendon at wrist and hand level, right hand, initial encounter - Discharge Information *PRESCRIPTION DRUG MONITORING PROGRAM REVIEWED*: Not Applicable *COPY OF PRESCRIPTION DRUG MONITORING REPORT IN PATIENT FITO: Not Applicable Instructions: Muscle Strain, [id number], RICE Therapy for Routine Care of Injuries, [id number] Referrals: Michelle Hernández MD [Primary Care Provider] - Additional Instructions: 1. rest 2. use splint as needed for pain and discomfort 3. Use ice 3-4 times a day for 20 minutes at a time 4. Can use Tylenol or ibuprofen as needed for pain and discomfort 5. Activity and diet as tolerated 6. Follow up in the clinic as needed symptoms progress and worsen 7. Call with any questions or concerns Sepsis Event Note - Evaluation Sepsis Screening Result: No Definite Risk - Focused Exam Vital Signs: Vital Signs Temp Pulse Resp BP Pulse Ox 09/22/19 16:11 37.7 C 117 H 16 131/79 98 Date Exam was Performed: 09/22/19 Time Exam was Performed: 16:20 - My Orders Last 24 Hours: My Active Orders 09/22/19 16:20 Wrist Comp Min 3V Bi [CR] Stat - Assessment/Plan Last 24 Hours: My Active Orders 09/22/19 16:20 Wrist Comp Min 3V Bi [CR] Stat Assessment:: 1. right wrist pain 2. right wrist strain Plan: 1. X-ray completed of the right wrist emergency department 2. Wrist splint help for comfort and discomfort 3. Education regarding RICE, activity, diet, [id number] medication, and follow-up care 4. All questions and concerns addressed prior to patient's discharge
--- NOTE | 2019-09-22 17:08 | CR ---
[id number] RAD/RAD Wrist Right 3V Min EXAM: RAD Wrist Right 3V Min CLINICAL DATA: PAIN COMPARISON: NO PREVIOUS SIMILAR EXAM IS AVAILABLE. FINDINGS: No fracture or dislocation is seen. There is no radiopaque foreign body in the soft tissues. There is no air in the soft tissues. There is no cortical thickening or periosteal reaction either. IMPRESSION: NEGATIVE PLAIN FILM EXAM. Will Wu MD 09/22/19 1077 Thank you for allowing us to participate in the care of your patient.
== END 2019-09-22 17:05 | disposition home or self-care (01) ==
LOC: VM.ED 15:47
DX: S66.911A Strain of unspecified muscle, fascia and tendon at wrist and hand level, right hand, initial encounter (principal); F41.9 Anxiety disorder, unspecified; F32.9 Major depressive disorder, single episode, unspecified; Z79.899 Other long term (current) drug therapy; Z88.8 Allergy status to other drugs, medicaments and biological substances; X58.XXXA Exposure to other specified factors, initial encounter
CPT/HCPCS: 73110-50; 73110-RT; 99283-25

== ENCOUNTER 2020-04-15 20:23 | Emergency (ER) | payer MEDICAID ==
[2020-04-15 20:33] VITALS: BP 110/76; PULSE 103
--- NOTE | 2020-04-15 20:56 | EDM.PDOC ---
ED HPI GENERAL MEDICAL PROBLEM - General Chief Complaint: Upper Extremity Injury/Pain Stated Complaint: R SHOULDER PAIN Time Seen by Provider: 04/15/20 20:35 Source of Information: Reports: Patient, RN, RN Notes Reviewed History Limitations: Reports: No Limitations - History of Present Illness INITIAL COMMENTS - FREE TEXT/NARRATIVE: Patient presents to ER with complaint of right shoulder pain. Patient states he woke up at approximately 1:00 this afternoon having pain in the right shoulder that is progressively gotten worse. States decreased range of motion. Patient states he has been having difficulty with popping in both shoulders for the past few weeks, saw his primary care provider who instructed him to stop use of VR videogames for about 2 weeks. Patient states the pain does come and go. States he has been playing video games but not VR, where he needs to move his arms aggressively. Denies any previous injury to the shoulder, except a bad fall while skiing several years ago. Onset: Today, Gradual Right Shoulder Pain Score (Numeric/FACES): 2 - Related Data Allergies Allergy/AdvReac Type Severity Reaction Status Date / Time amitriptyline Allergy Nightmares Verified 04/15/20 20:29 temazepam Allergy Other Verified 04/15/20 21:16 Home Meds: Home Meds Nortriptyline 25 mg PO BEDTIME 08/24/16 [History] Divalproex Sodium [Depakote ER] 750 mg PO BEDTIME 11/21/16 [History] Testosterone Cypionate 100 mg IM ASDIRECTED 11/21/16 [History] buPROPion [Wellbutrin XL] 300 mg PO BEDTIME 11/21/16 [History] Naproxen 500 mg PO Q12H 10/31/17 [History] Amphetamine/Dextroamphetamine [Adderall XR] 20 mg PO DAILY 04/15/20 [History] Lactulose 10 gm PO DAILY 04/15/20 [History] Past Medical History HEENT History: Reports: Impaired Vision Gastrointestinal History: Reports: Cholelithiasis 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 Musculoskeletal History: Reports: Back Pain, Chronic Neurological History: Reports: Headaches, Chronic, Migraines Psychiatric History: Reports: Anxiety, Depression, Emotional Problems, Suicidal Ideation - Past Surgical History HEENT Surgical History: Reports: Adenoidectomy, Tonsillectomy GI Surgical History: Reports: Cholecystectomy Musculoskeletal Surgical History: Reports: Other (See Below) Other Musculoskeletal Surgeries/Procedures:: back surgery Social & Family History - Family History Family Medical History: Noncontributory - Tobacco Use Smoking Status *Q: Former Smoker Used Tobacco, but Quit: Yes Month/Year Tobacco Last Used: 2015 - Caffeine Use Caffeine Use: Reports: None Review of Systems - Review of Systems Review Of Systems: Comprehensive ROS is negative, except as noted in HPI. ED EXAM, GENERAL - Physical Exam Exam: See Below Exam Limited By: No Limitations General Appearance: Alert, WD/WN, Mild Distress Eye Exam: Bilateral Eye: EOMI, Normal Inspection Ears: Normal External Exam, Hearing Grossly Normal Nose: Normal Inspection Throat/Mouth: Normal Inspection, Normal Lips, Normal Teeth, Normal Gums, Normal Oropharynx, Normal Voice, No Airway Compromise Head: Atraumatic, Normocephalic Neck: Normal Inspection, Supple, Non-Tender, Full Range of Motion Respiratory/Chest: No Respiratory Distress, Lungs Clear, Normal Breath Sounds, No Accessory Muscle Use, Chest Non-Tender Cardiovascular: Normal Peripheral Pulses, Regular Rate, Rhythm, No Edema, No Gallop, No JVD, No Murmur, No Rub Peripheral Pulses: 2+: Radial (L), Radial (R) GI/Abdominal: Normal Bowel Sounds, Soft, Non-Tender (Female) Exam: Deferred Rectal (Female) Exam: Deferred Back Exam: Normal Inspection, Full Range of Motion, NT Extremities: Arm Pain (Right shoulder), Limited Range of Motion (right shoulder) Neurological: Alert, Oriented, CN II-XII Intact, Normal Cognition, Normal Gait Psychiatric: Normal Affect, Normal Mood Skin Exam: Warm, Dry, Intact, Normal Color, No Rash Lymphatic: No Adenopathy Course - Vital Signs Last Recorded V/S: Last Vital Signs Temp 97.9 F 04/15/20 20:29 Pulse 103 H 04/15/20 20:29 Resp 18 04/15/20 20:29 BP 110/76 04/15/20 20:29 Pulse Ox 97 04/15/20 20:29 - Orders/Labs/Meds Orders: Active Orders 24 hr Category Date Time Status Shoulder Comp Rt [CR] Stat Exams 04/15/20 20:50 Taken - Radiology Interpretation Free Text/Narrative:: Right shoulder xray: No acute findings See rad report Departure - Departure Time of Disposition: 21:37 Disposition: Home, Self-Care 01 Condition: Fair Clinical Impression: Frozen shoulder syndrome Qualifiers: Laterality: right Qualified Code(s): M75.01 - Adhesive capsulitis of right shoulder - Discharge Information *PRESCRIPTION DRUG MONITORING PROGRAM REVIEWED*: No *COPY OF PRESCRIPTION DRUG MONITORING REPORT IN PATIENT FITO: No Instructions: Shoulder Range of Motion Exercises, Shoulder Pain, [id number], Adhesive Capsulitis Referrals: Michelle Hernández MD [Primary Care Provider] - Forms: ED Department Discharge Additional Instructions: May use ibuprofen as directed for pain as well as Tylenol as directed for pain May use heating pad to the right shoulder as tolerated Do not lay or sleep on the right side Continue to do range of motion exercises Follow-up with your primary care provider for PT referral Sepsis Event Note (ED) - Evaluation Sepsis Screening Result: No Definite Risk - Focused Exam Vital Signs: Vital Signs Temp Pulse Resp BP Pulse Ox 04/15/20 20:29 97.9 F 103 H 18 110/76 97 - My Orders Last 24 Hours: My Active Orders 04/15/20 20:50 Shoulder Comp Rt [CR] Stat - Assessment/Plan Last 24 Hours: My Active Orders 04/15/20 20:50 Shoulder Comp Rt [CR] Stat
--- NOTE | 2020-04-16 08:54 | CR ---
[id number] RAD/RAD Shoulder Right 2V Min Exam: RAD Shoulder Right 2V Min Indication:WOKE UP WITH PAIN AND DECREASED RANGE OF MOTION IN Comparison: No prior imaging for comparison. Discussion: Bones are in normal alignment. No fracture or dislocation. No AVN or erosive changes. Joint spaces are well-preserved. Subacromial space is well-preserved. Impression: Normal examination. Bryan Doty MD 04/16/20 0851 Thank you for allowing us to participate in the care of your patient.
== END 2020-04-15 21:44 | disposition home or self-care (01) ==
LOC: VM.ED 20:23
DX: M75.01 Adhesive capsulitis of right shoulder (principal); F32.9 Major depressive disorder, single episode, unspecified; F41.9 Anxiety disorder, unspecified; Z88.8 Allergy status to other drugs, medicaments and biological substances; Z87.891 Personal history of nicotine dependence; Z79.899 Other long term (current) drug therapy
CPT/HCPCS: 73030-RT; 99283; 99283-GF

== ENCOUNTER 2020-08-19 18:34 | Emergency (ER) | payer MEDICAID ==
[2020-08-19] MEDS ORDERED: Ketorolac 30 MG/ML SDV IM ONE (18:55)
[2020-08-19] MEDS ORDERED: Take Home: Amoxicillin/Clavulanate K 875-125 MG Tab, 2 Tab Pack PO ONE (18:56)
[2020-08-19] MEDS ORDERED: Take Home: Acetaminophen/Codeine 300 MG/30 MG, 5 Tab Pack PO ONE (18:56)
[2020-08-19 19:10] VITALS: BP 144/98; PULSE 101
--- NOTE | 2020-08-19 19:12 | EDM.PDOC ---
ED HPI GENERAL MEDICAL PROBLEM - General Chief Complaint: ENT Problem Stated Complaint: TOOTH PAIN Time Seen by Provider: 08/19/20 18:45 Source of Information: Reports: Patient History Limitations: Reports: No Limitations - History of Present Illness INITIAL COMMENTS - FREE TEXT/NARRATIVE: Pt. presents to ER with complaints of dental pain. Pt. has a history of poor dentition and has been seen in ER several times with acute dental infections. Pt. contacted the [facility] in [place], but states that they are not open due to covid 19. Denies any fever or chills. No chest pain or shortness of breath. No difficulty with swallowing or managing her oral secretion. Pt. states that the tooth in question is a L lower posterior tooth. The discomfort radiates up into the L lateral face. Onset: Today Onset Date: 08/19/20 Location: Reports: Face Quality: Reports: Ache, Throbbing Severity: Severe Left Lower Jaw Pain Score (Numeric/FACES): 10 - Related Data Allergies Allergy/AdvReac Type Severity Reaction Status Date / Time amitriptyline Allergy Nightmares Verified 08/19/20 19:10 temazepam Allergy Other Verified 08/19/20 19:10 Home Meds: Home Meds Divalproex Sodium [Depakote ER] 750 mg PO BEDTIME 11/21/16 [History] Testosterone Cypionate 100 mg IM ASDIRECTED 11/21/16 [History] buPROPion [Wellbutrin XL] 300 mg PO BEDTIME 11/21/16 [History] Naproxen 500 mg PO Q12H 10/31/17 [History] Amphetamine/Dextroamphetamine [Adderall XR] 20 mg PO DAILY 04/15/20 [History] Famotidine 10 mg PO DAILY 08/19/20 [History] Nortriptyline HCl [Pamelor] 25 mg PO BEDTIME 08/19/20 [History] Past Medical History HEENT History: Reports: Impaired Vision Other HEENT History: myopia, astigmatism Gastrointestinal History: Reports: Cholelithiasis 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 Endocrine/Metabolic History: Reports: Obesity/BMI 30+ - Past Surgical History HEENT Surgical History: Reports: Adenoidectomy, Tonsillectomy GI Surgical History: Reports: Cholecystectomy Musculoskeletal Surgical History: Reports: Other (See Below) Other Musculoskeletal Surgeries/Procedures:: back surgery Social & Family History - Family History Family Medical History: No Pertinent Family History - Caffeine Use Caffeine Use: Reports: None ED ROS GENERAL - Review of Systems Review Of Systems: See Below Constitutional: Reports: No Symptoms HEENT: Reports: Dental Pain Respiratory: Reports: No Symptoms Cardiovascular: Reports: No Symptoms Endocrine: Reports: No Symptoms GI/Abdominal: Reports: No Symptoms : Reports: No Symptoms Musculoskeletal: Reports: No Symptoms Skin: Reports: No Symptoms Neurological: Reports: No Symptoms Psychiatric: Reports: No Symptoms Hematologic/Lymphatic: Reports: No Symptoms Immunologic: Reports: No Symptoms ED EXAM, GENERAL - Physical Exam Exam: See Below Exam Limited By: No Limitations General Appearance: Alert, WD/WN, No Apparent Distress Throat/Mouth: Normal Inspection, Normal Lips, Other (Numerous decayed teeth noted. No large areas of abscess noted. No swelling to the hypopharynx. No large swelling or cellulitis to buccal area. ) Head: Atraumatic, Normocephalic Neck: Lymphadenopathy (L), Lymphadenopathy (R) Course - Vital Signs Last Recorded V/S: Last Vital Signs Temp 36.4 C 08/19/20 19:06 Pulse 101 H 08/19/20 19:06 Resp 16 08/19/20 19:06 BP 144/98 H 08/19/20 19:06 Pulse Ox 96 08/19/20 19:06 - Orders/Labs/Meds Meds: Medications Discontinued Medications Generic Name Dose Route Start Last Admin Trade Name Freq PRN Reason Stop Dose Admin Acetaminophen/Codeine Phosphate 1 packet 08/19/20 18:56 08/19/20 19:05 Take Home: Acetam/Codeine 300-30 Mg, 5 Pack PO 08/19/20 18:57 1 packet ONETIME ONE Administration Amoxicillin/Clavulanate Potassium 1 packet 08/19/20 18:56 08/19/20 19:05 Take Home: Amox/Clavulanate 875-12, 2 Tab Pac PO 08/19/20 18:57 1 packet ONETIME ONE Administration Ketorolac Tromethamine 30 mg 08/19/20 18:55 08/19/20 19:05 Toradol IM 08/19/20 18:56 30 mg ONETIME ONE Administration - Re-Assessments/Exams Free Text/Narrative Re-Assessment/Exam: 08/19/20 19:17 Pt. was given toradol 30mg IM for pain. Departure - Departure Time of Disposition: 19:07 Disposition: Home, Self-Care 01 Clinical Impression: Dental caries extending into dentin - Discharge Information Instructions: Amoxicillin; Clavulanic Acid tablets, Benzocaine mouth gel, ointment, solution, or dental paste, Acetaminophen; Codeine tablets , Probiotics Referrals: Michelle Hernández MD [Primary Care Provider] - Forms: ED Department Discharge Additional Instructions: Augmentin 875mg 1 twice daily for 10 days Tylenol #3 1 every 4-6 hours as needed for pain You can restart the naproxen tomorrow. Contact [facility] tomorrow [phone] to see if you can get in for dental work. If you can't, I would try [facility] [phone]. You would have to pay out of pocket, but he is reasonably priced and I believe takes payments. Sepsis Event Note (ED) - Evaluation Sepsis Screening Result: No Definite Risk - Focused Exam Vital Signs: Vital Signs Temp Pulse Resp BP Pulse Ox 08/19/20 19:06 36.4 C 101 H 16 144/98 H 96 - Problem List Review Problem List Initiated/Reviewed/Updated: Yes - Assessment/Plan Plan: Augmentin 875mg 1 twice daily for 10 days Tylenol #3 1 every 4-6 hours as needed for pain You can restart the naproxen tomorrow. Contact [facility] tomorrow [phone] to see if you can get in for dental work. If you can't, I would try [facility] [phone]. You would have to pay out of pocket, but he is reasonably priced and I believe takes payments.
== END 2020-08-19 19:06 | disposition home or self-care (01) ==
LOC: VM.ED 18:34
DX: K02.9 Dental caries, unspecified (principal); F41.9 Anxiety disorder, unspecified; F32.9 Major depressive disorder, single episode, unspecified; E66.9 Obesity, unspecified; Z68.33 Body mass index [BMI] 33.0-33.9, adult; Z88.8 Allergy status to other drugs, medicaments and biological substances; Z79.899 Other long term (current) drug therapy
CPT/HCPCS: 96372; 99282; 99283; A9270-GY; J1885

== ENCOUNTER 2020-12-22 20:49 | Emergency (ER) | payer MEDICAID ==
[2020-12-22 21:32] VITALS: BP 156/87; PULSE 104
[2020-12-22 22:11] LABS: PTT,PARTIAL THROMBOPLSTIN TIME 26.1 SEC (25.6-32.8)
[2020-12-22 22:25] LABS: CHLORIDE,CL 103 mmol/L (98-107); SODIUM,NA 144 mmol/L (136-145)
[2020-12-22 22:28] LABS: ANION GAP 14.8 mmol/L (5-15)
--- NOTE | 2020-12-23 01:34 | EDM.PDOC ---
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 presents to ER with complaints of pelvic pain. Pt. states that she started having discomfort in the lower abdomen yesterday. Pt. states that the discomfort was consistent with previous UTI. Pt. complains of mild dysuria. Pt. states that the discomfort has gotten worse. Pt. states they think something is coming out of the vagina. Pt. 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 Pt. has had top surgery but no surgery to genitalia. Pt. is quite anxious and less than forthcoming regarding past medical history. Pt. denies any fever or chills. No vaginal bleeding. Pt. states that it has been several years since pt. has had a pelvic exam. Onset: Today Location: Reports: Abdomen, Pelvis Quality: Reports: Burning Severity: Moderate low pelvis Pain Score (Numeric/FACES): 8 - Related Data Allergies Allergy/AdvReac Type Severity Reaction Status Date / Time amitriptyline Allergy Nightmares Verified 12/22/20 21:32 temazepam Allergy Other Verified 12/22/20 21:32 Home Meds: Home Meds Divalproex Sodium [Depakote ER] 750 mg PO BEDTIME 11/21/16 [History] Testosterone Cypionate 100 mg IM ASDIRECTED 11/21/16 [History] buPROPion [Wellbutrin XL] 300 mg PO BEDTIME 11/21/16 [History] Naproxen 500 mg PO Q12H 10/31/17 [History] Amphetamine/Dextroamphetamine [Adderall XR] 20 mg PO DAILY 04/15/20 [History] Famotidine 10 mg PO DAILY 08/19/20 [History] Nortriptyline HCl [Pamelor] 25 mg PO BEDTIME 08/19/20 [History] Past Medical History HEENT History: Reports: Impaired Vision Other HEENT History: myopia, astigmatism Gastrointestinal History: Reports: Cholelithiasis CHEMICAL CHECKER History: Reports: Dysfunctional Uterine Bleeding Other CHEMICAL CHECKER History: Patient states has had her period since 01/07 and it feels like it is not showing any sign of stopping. 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 Endocrine/Metabolic History: Reports: Obesity/BMI 30+ - Past Surgical History HEENT Surgical History: Reports: Adenoidectomy, Tonsillectomy GI Surgical History: Reports: Cholecystectomy Musculoskeletal Surgical History: Reports: Other (See Below) Other Musculoskeletal Surgeries/Procedures:: back surgery Social & Family History - Family History Family Medical History: Unobtainable - Tobacco Use Tobacco Use Status *Q: Unknown Ever Used Tobacco - Caffeine Use Caffeine Use: Reports: None ED ROS GENERAL - Review of Systems Review Of Systems: See Below Constitutional: Reports: No Symptoms. Denies: Fever, Chills, Malaise, Weakness, Fatigue, Diaphoresis GI/Abdominal: Reports: Abdominal Pain : Reports: Dysuria, Pain (pelvic pain) Skin: Reports: No Symptoms Neurological: Reports: No Symptoms Psychiatric: Reports: Anxiety ED EXAM, GENERAL - Physical Exam Exam: See Below Exam Limited By: No Limitations General Appearance: Alert, WD/WN, No Apparent Distress GI/Abdominal: Soft, No Mass, Tender (Mild increase in tenderness of suprapubic area. No guarding or rigidity. Denies any rebound tenderness. ) (Female) Exam: Normal External Exam, Normal Speculum Exam, Normal Bimanual Exam, Other (Pelvic exam was perform. No obvious trauma, bleeding or other abnormality noted. Pt. did have a moderate amount a clear mucous discharge at the vaginal opening. Pt. was very uncomfortable with both the speculum exam and bimanual exam. Again, no obvious abnormality noted.) Rectal (Female) Exam: Other (No visual abnormality or bleeding noted. ) Course - Vital Signs Last Recorded V/S: Last Vital Signs Temp 36.9 C 12/22/20 20:50 Pulse 104 H 12/22/20 20:50 Resp 16 12/22/20 20:50 BP 156/87 H 12/22/20 20:50 Pulse Ox 98 12/22/20 20:50 - Orders/Labs/Meds Orders: Active Orders 24 hr Category Date Time Status HCG QUALITATIVE,URINE [URCHEM] Stat Lab 12/22/20 22:10 Ordered UA RFX PRASAD AND CULT IF INDIC [URIN] Stat Lab 12/22/20 22:10 Ordered Labs: Laboratory Tests 12/22/20 12/22/20 12/22/20 Range/Units 21:52 21:52 21:52 WBC 11.1 H (4.0-10.0) x10^3/uL RBC 5.12 (4.00-5.50) x10^6/uL Hgb 15.8 (12.0-16.0) g/dL Hct 46.1 (33.0-47.0) % MCV 90.0 (78.0-93.0) fL MCH 30.9 (26.0-32.0) pg MCHC 34.3 (32.0-36.0) g/dL RDW Coeff of Caro 13.9 (10.0-15.0) % Plt Count 316 (130-400) x10^3/uL Neut % (Auto) 69.1 (50.0-80.0) % Lymph % (Auto) 20.1 L (25.0-50.0) % [place] % (Auto) 9.8 (2.0-11.0) % Eos % (Auto) 1.0 (0.0-4.0) % Baso % (Auto) 0.0 L (0.2-1.2) % PT 12.7 H (9.9-12.5) SEC INR 1.1 L (2.0-3.5) APTT 26.1 (25.6-32.8) SEC Sodium 144 (136-145) mmol/L Potassium 3.8 (3.5-5.1) mmol/L Chloride 103 (98-107) mmol/L Carbon Dioxide 30 (21-32) mmol/L Anion Gap 14.8 (5-15) mmol/L BUN 12 (7-18) mg/dL Creatinine 1.1 H (0.55-1.02) mg/dL Est Cr Clr Drug Dosing 79.55 mL/min Estimated GFR (MDRD) > 60 Glucose 89 (70-99) mg/dL Calcium 9.5 (8.5-10.1) mg/dL Corrected Calcium 9.18 (8.5-10.1) mg/dL Total Bilirubin 0.6 (0.2-1.0) mg/dL AST 10 L (15-37) U/L ALT 22 (14-59) U/L Alkaline Phosphatase 74 (46-116) U/L C-Reactive Protein < 0.2 (<=0.9) mg/dL Total Protein 7.8 (6.4-8.2) g/dL Albumin 4.4 (3.4-5.0) g/dL Globulin 3.4 Albumin/Globulin Ratio 1.29 Departure - Departure Time of Disposition: 23:57 Disposition: Home, Self-Care 01 Clinical Impression: Pelvic pain - Discharge Information Instructions: Abdominal Pain, Adult Referrals: Michelle Hernández MD [Primary Care Provider] - Forms: ED Department Discharge Additional Instructions: Follow-up with Dr. Hernández tomorrow, or return to ER when you are able to provide a urine sample. Sepsis Event Note (ED) - Evaluation Sepsis Screening Result: No Definite Risk - Focused Exam Vital Signs: Vital Signs Temp Pulse Resp BP Pulse Ox 12/22/20 20:50 36.9 C 104 H 16 156/87 H 98 - Problem List Review Problem List Initiated/Reviewed/Updated: Yes - My Orders Last 24 Hours: My Active Orders 12/22/20 22:10 HCG QUALITATIVE,URINE [URCHEM] Stat UA RFX PRASAD AND CULT IF INDIC [URIN] Stat - Assessment/Plan Last 24 Hours: My Active Orders 12/22/20 22:10 HCG QUALITATIVE,URINE [URCHEM] Stat UA RFX PRASAD AND CULT IF INDIC [URIN] Stat Plan: Pt. was unable to provide a urine sample. Pt. is requesting to be discharged prior to providing one. There is a follow-up appointment scheduled tomorrow with PCP. Pt. will return to ER if experiencing increased discomfort, discharge, fever or chills. All questions were answered.
== END 2020-12-22 23:57 | disposition home or self-care (01) ==
LOC: VM.ED 20:49
DX: R10.2 Pelvic and perineal pain (principal); E66.9 Obesity, unspecified; Z68.31 Body mass index [BMI] 31.0-31.9, adult; Z88.8 Allergy status to other drugs, medicaments and biological substances; Z79.899 Other long term (current) drug therapy
CPT/HCPCS: 36415; 80053; 85025; 85610; 85730; 86140; 99284

== ENCOUNTER 2020-12-27 16:04 | Emergency (ER) | payer MEDICAID ==
[2020-12-27 16:16] VITALS: BP 123/72; PULSE 111
[2020-12-27] MEDS ORDERED: Take Home: Sulfamethoxazole/Trimethoprim 800-160 MG Tab, 2 Tab Pack PO ONE (16:20)
--- NOTE | 2020-12-27 16:40 | EDM.PDOC ---
ED HPI GENERAL MEDICAL PROBLEM - General Chief Complaint: Skin Complaint Stated Complaint: ZIT ON HIS LEG Time Seen by Provider: 12/27/20 16:11 Source of Information: Reports: Patient History Limitations: Reports: No Limitations - History of Present Illness INITIAL COMMENTS - FREE TEXT/NARRATIVE: Pt. presents to ER with complaints of "zit" on abdomen. Pt. states that he developed the lesion over the past week. He states that he squeezed the lesion and was able to express some bloody drainage from the area. Denies any fever or chills. No streaking. Denies any abdominal pain, nausea, or vomiting. No known history of MRSA that he is aware of. Onset Date: 12/27/20 Location: Reports: Abdomen Associated Symptoms: Reports: Rash - Related Data Allergies Allergy/AdvReac Type Severity Reaction Status Date / Time amitriptyline Allergy Nightmares Verified 12/27/20 16:18 temazepam Allergy Other Verified 12/27/20 16:18 Home Meds: Home Meds Divalproex Sodium [Depakote ER] 750 mg PO BEDTIME 11/21/16 [History] Testosterone Cypionate 100 mg IM ASDIRECTED 11/21/16 [History] buPROPion [Wellbutrin XL] 300 mg PO BEDTIME 11/21/16 [History] Naproxen 500 mg PO Q12H 10/31/17 [History] Amphetamine/Dextroamphetamine [Adderall XR] 20 mg PO DAILY 04/15/20 [History] Famotidine 10 mg PO DAILY 08/19/20 [History] Nortriptyline HCl [Pamelor] 25 mg PO BEDTIME 08/19/20 [History] Past Medical History HEENT History: Reports: Impaired Vision Other HEENT History: myopia, astigmatism Gastrointestinal History: Reports: Cholelithiasis MANAGER MEETING History: Reports: Dysfunctional Uterine Bleeding Other MANAGER MEETING History: Patient states has had her period since 01/07 and it feels like it is not showing any sign of stopping. 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 Endocrine/Metabolic History: Reports: Obesity/BMI 30+ - Past Surgical History HEENT Surgical History: Reports: Adenoidectomy, Tonsillectomy GI Surgical History: Reports: Cholecystectomy Musculoskeletal Surgical History: Reports: Other (See Below) Other Musculoskeletal Surgeries/Procedures:: back surgery Social & Family History - Family History Family Medical History: Unobtainable - Tobacco Use Tobacco Use Status *Q: Unknown Ever Used Tobacco - Caffeine Use Caffeine Use: Reports: None ED ROS GENERAL - Review of Systems Review Of Systems: See Below Constitutional: Denies: Fever, Chills HEENT: Reports: No Symptoms Respiratory: Reports: No Symptoms Cardiovascular: Reports: No Symptoms Endocrine: Reports: No Symptoms GI/Abdominal: Reports: No Symptoms : Reports: No Symptoms Musculoskeletal: Reports: No Symptoms Skin: Reports: Erythema, Lumps Neurological: Reports: No Symptoms Psychiatric: Reports: No Symptoms Hematologic/Lymphatic: Reports: No Symptoms ED EXAM, SKIN/RASH Exam: See Below Exam Limited By: No Limitations General Appearance: Alert, WD/WN, No Apparent Distress GI/Abdominal: Soft, Non-Tender (No pain deep to the superficial abcess discussed below.), No Organomegaly, No Distention, No Mass Skin: Warm, Dry, Other (small, draining abscess subcentimeter in diameter noted to lower L abdomen. There is a central area of erythema that is draining reddish translucent material. ) Lymphatic: No Adenopathy Course - Vital Signs Last Recorded V/S: Last Vital Signs Temp 36.6 C 12/27/20 16:08 Pulse 111 H 12/27/20 16:08 Resp 16 12/27/20 16:08 BP 123/72 12/27/20 16:08 Pulse Ox 94 L 12/27/20 16:08 - Orders/Labs/Meds Meds: Medications Discontinued Medications Generic Name Dose Route Start Last Admin Trade Name Júnior PRN Reason Stop Dose Admin Trimethoprim/Sulfamethoxazole 2 packet 12/27/20 16:20 12/27/20 16:28 Take Home: Sulfamethoxazole/Trimethoprim 800-160 Mg Tab, 2 Tab Pack PO 12/27/20 16:21 2 packet ONETIME ONE Administration Departure - Departure Time of Disposition: 17:00 Disposition: Home, Self-Care 01 Clinical Impression: Abscess - Discharge Information Instructions: Folliculitis Referrals: Michelle Hernández MD [Primary Care Provider] - Forms: ED Department Discharge Additional Instructions: Bactrim DS 1 twice daily for 10 days Keep area clean. I would use warm packs a couple times a day to promote healing. Return to ER or follow-up in clinic if there is increased swelling, redness, or if you have frequent fever/chills. Sepsis Event Note (ED) - Evaluation Sepsis Screening Result: No Definite Risk - Assessment/Plan Plan: Bactrim DS 1 twice daily for 10 days Keep area clean. I would use warm packs a couple times a day to promote healing. Return to ER or follow-up in clinic if there is increased swelling, redness, or if you have frequent fever/chills.
== END 2020-12-27 16:28 | disposition home or self-care (01) ==
LOC: VM.ED 16:04
DX: L02.211 Cutaneous abscess of abdominal wall (principal); E66.9 Obesity, unspecified; Z68.30 Body mass index [BMI] 30.0-30.9, adult; Z90.49 Acquired absence of other specified parts of digestive tract; Z88.8 Allergy status to other drugs, medicaments and biological substances; Z79.899 Other long term (current) drug therapy
CPT/HCPCS: 99282; 99283; A9270-GY

== ENCOUNTER 2021-03-28 13:29 | Emergency (ER) | payer MEDICARE, MEDICAID ==
[2021-03-28] MEDS: Ketorolac 30 MG/ML SDV IM ONE (14:39)
[2021-03-28 14:58] VITALS: BP 139/76; PULSE 112
--- NOTE | 2021-03-28 15:14 | CT ---
[id number] CT/CT Head WO IV EXAM: NONCONTRAST HEAD CT INDICATION: HEADACHE, BILATERAL EXTREMITY NUMBNESS. COMPARISON: None. DISCUSSION: The ventricles and sulci are normal in size and configuration. The [place] and white matter are normal in attenuation. No mass effect or midline shift. No acute hemorrhage or extra-axial fluid collection. No acute territorial infarct is identified. A limited look at the orbits and paranasal sinuses is unremarkable. IMPRESSION: 1. Negative exam. Pablo Ayoub MD 03/28/21 0462 Thank you for allowing us to participate in the care of your patient.
--- NOTE | 2021-03-29 04:31 | EDM.PDOC ---
ED HPI GENERAL MEDICAL PROBLEM - General Chief Complaint: General Time Seen by Provider: 03/28/21 13:29 Source of Information: Reports: Patient History Limitations: Reports: No Limitations - History of Present Illness INITIAL COMMENTS - FREE TEXT/NARRATIVE: Pt. presents to ER with complains of headache and intermittent tingling in extremities. Initially the tingling was located only on the L side, but now also involves the R side. Denies any recent head trauma. No fever or chills. Pt. has a history of auditory hallucinations. This has been an ongoing problem for the patient. He has not followed up with his psychiatrist for this at this point. Pt. complains of some nausea, has not been vomiting. Denies any fever or chills. No vision loss or change. Onset: Today Location: Reports: Head Headache Pain Score (Numeric/FACES): 8 - Related Data Allergies Allergy/AdvReac Type Severity Reaction Status Date / Time amitriptyline Allergy Nightmares Verified 03/28/21 15:02 temazepam Allergy Other Verified 03/28/21 15:02 Home Meds: Home Meds Divalproex Sodium [Depakote ER] 750 mg PO BEDTIME 11/21/16 [History] Testosterone Cypionate 100 mg IM ASDIRECTED 11/21/16 [History] buPROPion [Wellbutrin XL] 300 mg PO BEDTIME 11/21/16 [History] Naproxen 500 mg PO Q12H 10/31/17 [History] Amphetamine/Dextroamphetamine [Adderall XR] 20 mg PO DAILY 04/15/20 [History] Famotidine 10 mg PO DAILY 08/19/20 [History] Nortriptyline HCl [Pamelor] 25 mg PO BEDTIME 08/19/20 [History] Past Medical History HEENT History: Reports: Impaired Vision Other HEENT History: myopia, astigmatism Gastrointestinal History: Reports: Cholelithiasis [employer] History: Reports: Dysfunctional Uterine Bleeding Other [employer] History: Patient states has had her period since 01/07 and it feels like it is not showing any sign of stopping. 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 Endocrine/Metabolic History: Reports: Obesity/BMI 30+ - Past Surgical History HEENT Surgical History: Reports: Adenoidectomy, Tonsillectomy GI Surgical History: Reports: Cholecystectomy Musculoskeletal Surgical History: Reports: Other (See Below) Other Musculoskeletal Surgeries/Procedures:: back surgery Social & Family History - Family History Family Medical History: Unobtainable - Tobacco Use Tobacco Use Status *Q: Never Tobacco User - Caffeine Use Caffeine Use: Reports: None - Recreational Drug Use Recreational Drug Use: Yes Recreational Drug Type: Reports: Marijuana/Hashish Recreational Drug Use Frequency: Socially Recreational Drug Last Use: one month ago ED ROS GENERAL - Review of Systems Review Of Systems: Comprehensive ROS is negative, except as noted in HPI. ED EXAM, GENERAL - Physical Exam Exam: See Below Exam Limited By: No Limitations General Appearance: Alert, WD/WN, Severe Distress Eye Exam: Bilateral Eye: EOMI, Normal Fundi, Normal Inspection, PERRL Throat/Mouth: Normal Inspection, Normal Teeth, Normal Oropharynx, No Airway Compromise Head: Atraumatic, Normocephalic Neck: Normal Inspection, Supple, Non-Tender, Full Range of Motion Respiratory/Chest: No Respiratory Distress, Lungs Clear, No Accessory Muscle Use, Chest Non-Tender Cardiovascular: Normal Peripheral Pulses, Regular Rate, Rhythm, No Edema, No JVD, No Murmur GI/Abdominal: Soft, Non-Tender, No Distention, No Mass (Female) Exam: Deferred Extremities: Normal Inspection, Normal Range of Motion, No Pedal Edema, Normal Capillary Refill Neurological: Alert, Oriented, CN II-XII Intact, Normal Cognition, Normal Gait, Normal Reflexes, No Motor/Sensory Deficits Psychiatric: Normal Affect, Normal Mood Course - Vital Signs Last Recorded V/S: Last Vital Signs Temp 37.3 C 03/28/21 14:50 Pulse 112 H 03/28/21 14:50 Resp 18 03/28/21 14:50 BP 139/76 03/28/21 14:50 Pulse Ox 98 03/28/21 14:50 - Orders/Labs/Meds Meds: Medications Discontinued Medications Generic Name Dose Route Start Last Admin Trade Name Freq PRN Reason Stop Dose Admin Chlorpromazine HCl 25 mg 03/28/21 14:07 03/28/21 14:40 Chlorpromazine 25 Mg/Ml Amp IM 03/28/21 14:08 25 mg ONETIME ONE Administration Ketorolac Tromethamine 30 mg 03/28/21 14:08 03/28/21 14:39 Ketorolac 30 Mg/Ml Sdv IM 03/28/21 14:09 30 mg ONETIME ONE Administration - Re-Assessments/Exams Free Text/Narrative Re-Assessment/Exam: Pt. was given thorazine 25mg IM and toradol 30mg IM. He reported significant improvement in his headache and tingling sensation in extremities. Departure - Departure Time of Disposition: 15:33 Disposition: Home, Self-Care 01 Clinical Impression: Migraine - Discharge Information Instructions: Migraine Headache Referrals: PCP,None [Primary Care Provider] - Forms: ED Department Discharge Additional Instructions: Home to rest. Drink plenty of fluids. Talk to your psychiatrist about the things we discussed today. Follow-up in clinic in 7-10 days, sooner if not gradually improving. Sepsis Event Note (ED) - Evaluation Sepsis Screening Result: No Definite Risk - Assessment/Plan Plan: Home to rest. Drink plenty of fluids. Talk to your psychiatrist about the things we discussed today. Follow-up in clinic in 7-10 days, sooner if not gradually improving.
== END 2021-03-28 15:33 | disposition home or self-care (01) ==
LOC: VM.ED 13:29
DX: G43.909 Migraine, unspecified, not intractable, without status migrainosus (principal); E66.9 Obesity, unspecified; Z88.8 Allergy status to other drugs, medicaments and biological substances; Z79.899 Other long term (current) drug therapy
CPT/HCPCS: 70450; 96372; 99283; 99284-25; J1885; J3230

== ENCOUNTER 2021-04-20 16:42 | Emergency (ER) | payer MEDICARE, MEDICAID ==
--- NOTE | 2021-04-20 17:24 | EDM.PDOC ---
ED HPI GENERAL MEDICAL PROBLEM - General Stated Complaint: LEFT EAR PAIN Time Seen by Provider: 04/20/21 16:50 Source of Information: Reports: Patient History Limitations: Reports: No Limitations - History of Present Illness INITIAL COMMENTS - FREE TEXT/NARRATIVE: Patient presents to the ED for left ear pain. He states he has had pain for several days, no drainage, no trauma, no injury. Has not been swimming. Started antibiotics today for a bad left lower tooth. States he has a " buzzing " in his head for a week. Denies any drugs or alcohol today. Is going through gender reassignment.. has not taken anything for this Duration: Day(s): Left Ear Pain Score (Numeric/FACES): 9 - Related Data Allergies Allergy/AdvReac Type Severity Reaction Status Date / Time amitriptyline Allergy Nightmares Verified 04/20/21 18:22 temazepam Allergy Other Verified 04/20/21 18:22 Home Meds: Home Meds Divalproex Sodium [Depakote ER] 750 mg PO BEDTIME 11/21/16 [History] Testosterone Cypionate 100 mg IM ASDIRECTED 11/21/16 [History] buPROPion [Wellbutrin XL] 300 mg PO BEDTIME 11/21/16 [History] Naproxen 500 mg PO Q12H 10/31/17 [History] Amphetamine/Dextroamphetamine [Adderall XR] 20 mg PO DAILY 04/15/20 [History] Famotidine 10 mg PO DAILY 08/19/20 [History] Nortriptyline HCl [Pamelor] 25 mg PO BEDTIME 08/19/20 [History] Past Medical History HEENT History: Reports: Impaired Vision Other HEENT History: myopia, astigmatism Gastrointestinal History: Reports: Cholelithiasis HR MANAGER History: Reports: Dysfunctional Uterine Bleeding Other HR MANAGER History: Patient states has had her period since 01/07 and it feels like it is not showing any sign of stopping. 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 Denies: Eye Discharge, Hearing Loss, Nose Pain, Rhinitis, Sinus Problem Respiratory: Reports: No Symptoms Cardiovascular: Reports: No Symptoms Endocrine: Reports: No Symptoms GI/Abdominal: Reports: No Symptoms : Reports: No Symptoms Musculoskeletal: Reports: No Symptoms Skin: Reports: No Symptoms Neurological: Reports: Headache Psychiatric: Reports: No Symptoms Hematologic/Lymphatic: Reports: No Symptoms Immunologic: Reports: No Symptoms ED EXAM, ENT - Physical Exam Exam: See Below Exam Limited By: No Limitations General Appearance: Alert, WD/WN, No Apparent Distress, Anxious Eye Exam: Bilateral Eye: EOMI, Normal Inspection, PERRL Ears: Normal External Exam, Normal Canal, Hearing Grossly Normal, Normal TMs, Mastoid Tenderness (left mildly). No: TM Bulging, TM Dullness, TM Erythema, TM Blood, TM Fluid Nose: Normal Inspection, Normal Mucousa, No Blood Mouth/Throat: Normal Inspection, Normal Gums, Normal Lips, Dental Pain (left lower second molar) Head: Atraumatic Neck: Normal Inspection, Supple. No: Lymphadenopathy (L), Lymphadenopathy (R) Respiratory/Chest: No Respiratory Distress, Lungs Clear, Normal Breath Sounds, No Accessory Muscle Use Cardiovascular: Normal Peripheral Pulses, Regular Rate, Rhythm, No Edema Extremities: Normal Inspection, Normal Range of Motion, Normal Capillary Refill Neurological: Alert, Oriented, CN II-XII Intact, Normal Cognition Psychiatric: Anxious, Flat Affect Course - Vital Signs Last Recorded V/S: Last Vital Signs Temp 36.6 C 04/20/21 16:50 Pulse 114 H 04/20/21 16:50 Resp 18 04/20/21 16:50 BP 129/95 H 04/20/21 16:50 Pulse Ox 96 04/20/21 16:50 - Orders/Labs/Meds Orders: Active Orders 24 hr Category Date Time Status traMADol [Take Home: traMADol 50 MG, 4 Tab Pack] Med 04/20/21 18:27 Once 1 packet PO ONETIME ONE - Radiology Interpretation Free Text/Narrative:: Ct head without any acute intercranial findings. interpreted by Radiology - Re-Assessments/Exams Free Text/Narrative Re-Assessment/Exam: 04/20/21 17:41 ear is without signs of infection, started amoxicillin today. some mastoid tenderness. Will get a ct scan to rule out mastoiditis 04/20/21 18:[address] was normal. He is concerned about tinnitus. Advised ENT and audiology follow up. Given #4 tramadol one every 6-8 hours prn pain. continue antibiotics Departure - Departure Time of Disposition: 18:28 Disposition: Home, Self-Care 01 Clinical Impression: Ear pain, left, Tinnitus - Discharge Information *PRESCRIPTION DRUG MONITORING PROGRAM REVIEWED*: Not Applicable *COPY OF PRESCRIPTION DRUG MONITORING REPORT IN PATIENT FITO: Not Applicable Instructions: Earache, Adult, Tinnitus Referrals: Michelle Hernández MD [Primary Care Provider] - Additional Instructions: use the tramadol as needed tonight for the pain, one tablet every 6 hours. Follow up with dentist and ENT specialist for the ear pain and tinnitus. Continue antibiotics Sepsis Event Note (ED) - Focused Exam Vital Signs: Vital Signs Temp Pulse Resp BP Pulse Ox 04/20/21 16:50 36.6 C 114 H 18 129/95 H 96 - My Orders Last 24 Hours: My Active Orders 04/20/21 18:27 traMADol [Take Home: traMADol 50 MG, 4 Tab Pack] 1 packet PO ONETIME ONE - Assessment/Plan Last 24 Hours: My Active Orders 04/20/21 18:27 traMADol [Take Home: traMADol 50 MG, 4 Tab Pack] 1 packet PO ONETIME ONE
[2021-04-20 18:20] VITALS: BP 129/95; PULSE 114
--- NOTE | 2021-04-20 18:25 | CT ---
[id number] CT/CT Head WO IV EXAM: CT Head WO IV CLINICAL DATA: MASTOID AND LEFT EAR PAIN. COMPARISON STUDY: March 28, 2021. FINDINGS: No intracranial hemorrhage, extra-axial fluid collection, mass, or acute ischemia. No hydrocephalus. Calvarium intact. Paranasal sinuses, mastoid air cells, and middle ear cavities are clear. Are clear. IMPRESSION: Normal examination of the brain. Normal examination of the left mastoid air cells and middle ear cavity. Bryan Doty MD 04/20/21 [id number] Thank you for allowing us to participate in the care of your patient.
[2021-04-20] MEDS: Take Home: traMADol 50 MG, 4 Tab Pack PO ONE (18:38)
== END 2021-04-20 18:38 | disposition home or self-care (01) ==
LOC: VM.ED 16:42
DX: H93.12 Tinnitus, left ear (principal); H92.02 Otalgia, left ear; E66.9 Obesity, unspecified; Z88.8 Allergy status to other drugs, medicaments and biological substances; Z79.899 Other long term (current) drug therapy
CPT/HCPCS: 70450; 99283; A9270

== ENCOUNTER 2021-04-30 07:03 | Emergency (ER) | payer MEDICARE, MEDICAID ==
[2021-04-30 07:48] LABS: PTT,PARTIAL THROMBOPLSTIN TIME 25.6 SEC (25.6-32.8)
[2021-04-30 07:52] LABS: ANION GAP 13.2 mmol/L (5-15); CHLORIDE,CL 102 mmol/L (98-107); SODIUM,NA 141 mmol/L (136-145)
--- NOTE | 2021-04-30 07:56 | EDM.PDOC ---
ED HPI GENERAL MEDICAL PROBLEM - General Stated Complaint: ER Time Seen by Provider: 04/30/21 07:25 Source of Information: Reports: Patient - History of Present Illness INITIAL COMMENTS - FREE TEXT/NARRATIVE: Gary is a 25 y/o trans-male who presents to the ER reporting that he had a headache last night about 9 pm and then this AM he felt "tingling " in the top of his head and "like my head cracked open". Also describes last night "feeling a lightening bolt to head" and then vision slightly fussy. Was slightly shaky when walking into the ER. In addition he had a mildly weaker left hand grasps and some incoordination on the left lower leg region. Patient denies previous stroke hx. Denies any previous migraines. - Related Data Allergies Allergy/AdvReac Type Severity Reaction Status Date / Time amitriptyline Allergy Nightmares Verified 04/30/21 08:26 temazepam Allergy Other Verified 04/30/21 08:26 Home Meds: Home Meds Divalproex Sodium [Depakote ER] 750 mg PO BEDTIME 11/21/16 [History] Testosterone Cypionate 100 mg IM ASDIRECTED 11/21/16 [History] buPROPion [Wellbutrin XL] 300 mg PO BEDTIME 11/21/16 [History] Naproxen 500 mg PO Q12H 10/31/17 [History] Amphetamine/Dextroamphetamine [Adderall XR] 20 mg PO DAILY 04/15/20 [History] Famotidine 10 mg PO DAILY 08/19/20 [History] Nortriptyline HCl [Pamelor] 25 mg PO BEDTIME 08/19/20 [History] Past Medical History HEENT History: Reports: Impaired Vision Other HEENT History: myopia, astigmatism Gastrointestinal History: Reports: Cholelithiasis CIGAR BANDER History: Reports: Dysfunctional Uterine Bleeding Other CIGAR BANDER History: Patient states has had her period since 01/07 and it feels like it is not showing any sign of stopping. 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 Endocrine/Metabolic History: Reports: Obesity/BMI 30+ - Past Surgical History HEENT Surgical History: Reports: Adenoidectomy, Tonsillectomy GI Surgical History: Reports: Cholecystectomy Musculoskeletal Surgical History: Reports: Other (See Below) Other Musculoskeletal Surgeries/Procedures:: back surgery Social & Family History - Family History Family Medical History: Unobtainable - Caffeine Use Caffeine Use: Reports: None Review of Systems - Review of Systems Review Of Systems: See Below Constitutional: Reports: Weakness ED EXAM, GENERAL - Physical Exam Exam: See Below General Appearance: Alert, WD/WN, No Apparent Distress, Other (Patient slow to answer questions, but hard to assess and get clear picture of sx. ) Eye Exam: Bilateral Eye: PERRL Ears: Normal External Exam, Normal Canal, Hearing Grossly Normal Nose: Normal Inspection, Normal Mucosa Throat/Mouth: Normal Inspection, Normal Lips, Normal Oropharynx, Normal Voice Head: Atraumatic, Normocephalic Neck: Normal Inspection, Supple Respiratory/Chest: No Respiratory Distress, Lungs Clear, Chest Non-Tender Cardiovascular: Normal Peripheral Pulses, Regular Rate, Rhythm GI/Abdominal: Normal Bowel Sounds, Soft, Non-Tender (Female) Exam: Deferred Rectal (Female) Exam: Deferred Back Exam: Normal Inspection Extremities: Normal Inspection, Normal Range of Motion, No Pedal Edema, Normal Capillary Refill Neurological: Alert, Oriented, CN II-XII Intact, Normal Cognition Psychiatric: Flat Affect Skin Exam: Warm, Dry, Intact, Normal Color Lymphatic: No Adenopathy #1 Interpretation EKG Date: 04/30/21 Time: 07:19 Rhythm: NSR Rate (Beats/Min): 112 [place]: Normal P-Wave: Present QRS: Normal ST-T: Normal QT: Normal EKG Interpretation Comments: Sinus Tachycardia Course - Vital Signs Text/Narrative:: 0726 Patient seen by HEALTH COORDINATOR following return from CT. Stroke Code called. Labs and EKG ordered. 0808 CT results negative per radiologist. A liter of NS, Toradol 30mg IVP, Benadryl 50mg IVP, and Reglan 10mg IVP given for headache symptoms. Suspect possible migraine at this time, but cannot exclude neurologic event yet. 0835 Patient feeling better at this time. 0910 CT Angio Head/Neck ordered at this time. Mild MARTINEZ remains, APAP 1gm po ordered. 1215 Patient resting. CTA results reviewed at this time and negative. Patient reassessed and no further uncoordination in the left lower leg and headache gone. Discussed further observation to monitor neuro sx with patient vs discharge home. Nuero exam normal at this time and will discharge to home since probability of CVA low. Patient in agreement. 1225 Discharge instructions were given and he was discharged to home. - Orders/Labs/Meds Orders: Active Orders 24 hr Category Date Time Status Nothing per Oral Now Diet [DIET] Diet 04/30/21 Dinner Ordered Ang Neck [CT] Stat Exams 04/30/21 09:10 Ordered Sodium Chloride 0.9% [Normal Saline] 1,000 ml Med 04/30/21 08:00 Active IV ASDIRECTED Medication Orders Sodium Chloride (Normal Saline) 1,000 mls @ 30 mls/hr IV ASDIRECTED NACHO Last Admin: 04/30/21 08:08 Dose: 30 mls/hr Documented by: YOLY Labs: Laboratory Tests 04/30/21 04/30/21 04/30/21 Range/Units 07:10 07:23 07:23 WBC 6.5 (4.0-10.0) x10^3/uL RBC 5.58 H (4.00-5.50) x10^6/uL Hgb 16.9 H (12.0-16.0) g/dL Hct 49.6 H (33.0-47.0) % MCV 88.9 (78.0-93.0) fL MCH 30.3 (26.0-32.0) pg MCHC 34.1 (32.0-36.0) g/dL RDW Coeff of [place] 12.6 (10.0-15.0) % Plt Count 285 (130-400) x10^3/uL Immature Gran % (Auto) 0.00 (0.00-0.43) % Neut % (Auto) 48.5 L (50.0-80.0) % Lymph % (Auto) 39.9 (25.0-50.0) % [place] % (Auto) 10.1 (2.0-11.0) % Eos % (Auto) 1.2 (0.0-4.0) % Baso % (Auto) 0.3 (0.2-1.2) % Neut # (Auto) 3.2 (1.8-7.7) x10^3/uL Lymph # (Auto) 2.6 (1.0-4.8) x10^3/uL [place] # (Auto) 0.7 (0.0-0.8) x10^3/uL Eos # (Auto) 0.1 (0.0-0.5) x10^3/uL Baso # (Auto) 0.0 (0.0-0.2) x10^3/uL Immature Gran # (Auto) 0.00 (0.00-0.07) x10^3/uL PT (9.9-12.5) SEC INR (2.0-3.5) APTT (25.6-32.8) SEC Sodium 141 (136-145) mmol/L Potassium 3.2 L (3.5-5.1) mmol/L Chloride 102 (98-107) mmol/L Carbon Dioxide 29 (21-32) mmol/L Anion Gap 13.2 (5-15) mmol/L BUN 9 (7-18) mg/dL Creatinine 1.2 H (0.55-1.02) mg/dL Est Cr Clr Drug Dosing TNP Estimated GFR (MDRD) 55 Glucose 110 H (70-99) mg/dL POC Glucose 106 H (70-99) mg/dL Calcium 9.3 (8.5-10.1) mg/dL Troponin I High Sens < 4 (<=51) ng/L Urine Color (YELLOW) Urine Appearance (CLEAR) Urine pH (5.0-8.0) Ur Specific [place] Urine Protein (NEGATIVE) mg/dL Urine Glucose (UA) (NEGATIVE) mg/dL Urine Ketones (NEGATIVE) mg/dL Urine Occult Blood (NEGATIVE) Urine Nitrite (NEGATIVE) Urine Bilirubin (NEGATIVE) Urine Urobilinogen (0.2) EU/dL Ur Leukocyte Esterase (NEGATIVE) Urine RBC (NOT SEEN) /HPF Urine WBC (NOT SEEN) /HPF Ur Squamous Epith Cells (NOT SEEN) /HPF Urine Bacteria (NOT SEEN) /HPF Urine Mucus (NOT SEEN) /LPF Urine Opiates Screen (NEGATIVE) Ur Buprenorphine Scrn (NEGATIVE) Ur Oxycodone Screen (NEGATIVE) Urine Methadone Screen (NEGATIVE) Ur Barbiturates Screen (NEGATIVE) Ur Phencyclidine Scrn (NEGATIVE) Ur Amphetamine Screen (NEGATIVE) U Methamphetamines Scrn (NEGATIVE) Urine MDMA Screen (NEGATIVE) U Benzodiazepines Scrn (NEGATIVE) U Cocaine Metab Screen (NEGATIVE) U Marijuana (THC) Screen (NEGATIVE) Ethyl Alcohol (0-3) mg/dL 04/30/21 04/30/21 04/30/21 Range/Units 07:23 07:23 07:55 WBC (4.0-10.0) x10^3/uL RBC (4.00-5.50) x10^6/uL Hgb (12.0-16.0) g/dL Hct (33.0-47.0) % MCV (78.0-93.0) fL MCH (26.0-32.0) pg MCHC (32.0-36.0) g/dL RDW Coeff of [place] (10.0-15.0) % Plt Count (130-400) x10^3/uL Immature Gran % (Auto) (0.00-0.43) % Neut % (Auto) (50.0-80.0) % Lymph % (Auto) (25.0-50.0) % [place] % (Auto) (2.0-11.0) % Eos % (Auto) (0.0-4.0) % Baso % (Auto) (0.2-1.2) % Neut # (Auto) (1.8-7.7) x10^3/uL Lymph # (Auto) (1.0-4.8) x10^3/uL [place] # (Auto) (0.0-0.8) x10^3/uL Eos # (Auto) (0.0-0.5) x10^3/uL Baso # (Auto) (0.0-0.2) x10^3/uL Immature Gran # (Auto) (0.00-0.07) x10^3/uL PT 12.2 (9.9-12.5) SEC INR 1.1 L (2.0-3.5) APTT 25.6 (25.6-32.8) SEC Sodium (136-145) mmol/L Potassium (3.5-5.1) mmol/L Chloride (98-107) mmol/L Carbon Dioxide (21-32) mmol/L Anion Gap (5-15) mmol/L BUN (7-18) mg/dL Creatinine (0.55-1.02) mg/dL Est Cr Clr Drug Dosing Estimated GFR (MDRD) Glucose (70-99) mg/dL POC Glucose (70-99) mg/dL Calcium (8.5-10.1) mg/dL Troponin I High Sens (<=51) ng/L Urine Color (YELLOW) Urine Appearance (CLEAR) Urine pH (5.0-8.0) Ur Specific [place] Urine Protein (NEGATIVE) mg/dL Urine Glucose (UA) (NEGATIVE) mg/dL Urine Ketones (NEGATIVE) mg/dL Urine Occult Blood (NEGATIVE) Urine Nitrite (NEGATIVE) Urine Bilirubin (NEGATIVE) Urine Urobilinogen (0.2) EU/dL Ur Leukocyte Esterase (NEGATIVE) Urine RBC (NOT SEEN) /HPF Urine WBC (NOT SEEN) /HPF Ur Squamous Epith Cells (NOT SEEN) /HPF Urine Bacteria (NOT SEEN) /HPF Urine Mucus (NOT SEEN) /LPF Urine Opiates Screen Negative (NEGATIVE) Ur Buprenorphine Scrn Negative (NEGATIVE) Ur Oxycodone Screen Negative (NEGATIVE) Urine Methadone Screen Negative (NEGATIVE) Ur Barbiturates Screen Negative (NEGATIVE) Ur Phencyclidine Scrn Negative (NEGATIVE) Ur Amphetamine Screen Positive H (NEGATIVE) U Methamphetamines Scrn Negative (NEGATIVE) Urine MDMA Screen Negative (NEGATIVE) U Benzodiazepines Scrn Negative (NEGATIVE) U Cocaine Metab Screen Negative (NEGATIVE) U Marijuana (THC) Screen Negative (NEGATIVE) Ethyl Alcohol < 3 (0-3) mg/dL 04/30/21 Range/Units 07:55 WBC (4.0-10.0) x10^3/uL RBC (4.00-5.50) x10^6/uL Hgb (12.0-16.0) g/dL Hct (33.0-47.0) % MCV (78.0-93.0) fL MCH (26.0-32.0) pg MCHC (32.0-36.0) g/dL RDW Coeff of [place] (10.0-15.0) % Plt Count (130-400) x10^3/uL Immature Gran % (Auto) (0.00-0.43) % Neut % (Auto) (50.0-80.0) % Lymph % (Auto) (25.0-50.0) % [place] % (Auto) (2.0-11.0) % Eos % (Auto) (0.0-4.0) % Baso % (Auto) (0.2-1.2) % Neut # (Auto) (1.8-7.7) x10^3/uL Lymph # (Auto) (1.0-4.8) x10^3/uL [place] # (Auto) (0.0-0.8) x10^3/uL Eos # (Auto) (0.0-0.5) x10^3/uL Baso # (Auto) (0.0-0.2) x10^3/uL Immature Gran # (Auto) (0.00-0.07) x10^3/uL PT (9.9-12.5) SEC INR (2.0-3.5) APTT (25.6-32.8) SEC Sodium (136-145) mmol/L Potassium (3.5-5.1) mmol/L Chloride (98-107) mmol/L Carbon Dioxide (21-32) mmol/L Anion Gap (5-15) mmol/L BUN (7-18) mg/dL Creatinine (0.55-1.02) mg/dL Est Cr Clr Drug Dosing Estimated GFR (MDRD) Glucose (70-99) mg/dL POC Glucose (70-99) mg/dL Calcium (8.5-10.1) mg/dL Troponin I High Sens (<=51) ng/L Urine Color Dark yellow H (YELLOW) Urine Appearance Slightly cloudy H (CLEAR) Urine pH 6.0 (5.0-8.0) Ur Specific [place] >=1.030 Urine Protein 30 H (NEGATIVE) mg/dL Urine Glucose (UA) Negative (NEGATIVE) mg/dL Urine Ketones 40 H (NEGATIVE) mg/dL Urine Occult Blood Large H (NEGATIVE) Urine Nitrite Negative (NEGATIVE) Urine Bilirubin Small H (NEGATIVE) Urine Urobilinogen 0.2 (0.2) EU/dL Ur Leukocyte Esterase Negative (NEGATIVE) Urine RBC 20-30 H (NOT SEEN) /HPF Urine WBC 5-10 H (NOT SEEN) /HPF Ur Squamous Epith Cells Few H (NOT SEEN) /HPF Urine Bacteria Few H (NOT SEEN) /HPF Urine Mucus Many H (NOT SEEN) /LPF Urine Opiates Screen (NEGATIVE) Ur Buprenorphine Scrn (NEGATIVE) Ur Oxycodone Screen (NEGATIVE) Urine Methadone Screen (NEGATIVE) Ur Barbiturates Screen (NEGATIVE) Ur Phencyclidine Scrn (NEGATIVE) Ur Amphetamine Screen (NEGATIVE) U Methamphetamines Scrn (NEGATIVE) Urine MDMA Screen (NEGATIVE) U Benzodiazepines Scrn (NEGATIVE) U Cocaine Metab Screen (NEGATIVE) U Marijuana (THC) Screen (NEGATIVE) Ethyl Alcohol (0-3) mg/dL Meds: Medications Generic Name Dose Route Start Last Admin Trade Name Freq PRN Reason Stop Dose Admin Sodium Chloride 1,000 mls @ 30 mls/hr 04/30/21 08:00 04/30/21 08:08 Normal Saline IV 30 mls/hr ASDIRECTED NACHO Administration Discontinued Medications Generic Name Dose Route Start Last Admin Trade Name Freq PRN Reason Stop Dose Admin Acetaminophen 1,000 mg 04/30/21 09:01 04/30/21 09:25 Acetaminophen 500 Mg Tab PO 04/30/21 09:02 1,000 mg ONETIME ONE Administration Diphenhydramine HCl 50 mg 04/30/21 08:02 04/30/21 08:09 Diphenhydramine 50 Mg/Ml Sdv IVPUSH 04/30/21 08:03 50 mg ONETIME ONE Administration Iopamidol 100 ml 04/30/21 09:48 04/30/21 09:30 Iopamidol 755 Mg/Ml 100 Ml Bottle IVPUSH 04/30/21 09:49 100 ml ONETIME ONE Administration Ketorolac Tromethamine 30 mg 04/30/21 08:05 04/30/21 08:09 Ketorolac 30 Mg/Ml Sdv IVPUSH 04/30/21 08:06 30 mg ONETIME ONE Administration Metoclopramide HCl 10 mg 04/30/21 08:03 04/30/21 08:09 Metoclopramide 10 Mg/2 Ml Sdv IVPUSH 04/30/21 08:04 10 mg ONETIME ONE Administration Departure - Departure Time of Disposition: 12:25 Disposition: Home, Self-Care 01 Condition: Good Clinical Impression: Migraine Qualifiers: Status migrainosus presence: with status migrainosus Intractability: intractable - Discharge Information Instructions: Chronic Migraine Headache, [id number] Referrals: Michelle Hernández MD [Primary Care Provider] - - Problem List & Annotations (1) Migraine SNOMED Code(s): 50748089 Code(s): G43.909 - MIGRAINE, UNSP, NOT INTRACTABLE, WITHOUT STATUS MIGRAINOSUS Status: Acute Current Visit: Yes Annotation/Comment:: -Use ibuprofen or acetaminophen as needed for headache -Drink 1-2 liters of water every day. Getting dehydrated can make a headache worse. -Make sure you are getting regular sleep every night. -Start keeping a journal of your headache symptoms to document when your symptoms start and what relieves them. -If symptoms are not improving as expected, return to your Primary Care Provider for further care -Return to the ER as needed for any concerns Qualifiers: Status migrainosus presence: with status migrainosus Intractability: intractable - Problem List Review Problem List Initiated/Reviewed/Updated: Yes - My Orders Last 24 Hours: My Active Orders 04/30/21 08:00 Sodium Chloride 0.9% [Normal Saline] 1,000 ml IV ASDIRECTED 04/30/21 09:10 Ang Neck [CT] Stat 04/30/21 Dinner Nothing per Oral Now Diet [DIET] - Assessment/Plan Last 24 Hours: My Active Orders 04/30/21 08:00 Sodium Chloride 0.9% [Normal Saline] 1,000 ml IV ASDIRECTED 04/30/21 09:10 Ang Neck [CT] Stat 04/30/21 Dinner Nothing per Oral Now Diet [DIET]
[2021-04-30] MEDS ORDERED: Sodium Chloride 0.9% 1,000 ML IV SCH (08:00)
[2021-04-30] MEDS ORDERED: diphenhydrAMINE 50 MG/ML SDV IVPUSH ONE (08:02)
[2021-04-30] MEDS ORDERED: Metoclopramide 10 MG/2 ML SDV IVPUSH ONE (08:03)
[2021-04-30] MEDS ORDERED: Ketorolac 30 MG/ML SDV IVPUSH ONE (08:05)
--- NOTE | 2021-04-30 08:12 | CT ---
[id number] CT/CT Head Stroke Protocol EXAM: NONCONTRAST HEAD CT INDICATION: STROKE CODE. HEADACHE WITH LEFT NUMBNESS. COMPARISON: None. DISCUSSION: The ventricles and sulci are normal in size and configuration. The [place] and white matter are normal in attenuation. No mass effect or midline shift. No acute hemorrhage or extra-axial fluid collection. No acute territorial infarct is identified. A limited look at the orbits and paranasal sinuses is unremarkable. Results called at 8:05 AM on 04/30/2021. IMPRESSION: 1. Negative exam. Pablo Ayoub MD 04/30/21 0810 Thank you for allowing us to participate in the care of your patient.
[2021-04-30 08:14] LABS: BARBITURATE SCREEN,URINE NEGATIVE (NEGATIVE); BENZODIAZEPINES SCREEN,URINE NEGATIVE (NEGATIVE); BUPRENORPHINE SCREEN,URINE NEGATIVE (NEGATIVE); METHAMPHETAMINE SCREEN, URINE NEGATIVE (NEGATIVE); THC SCREEN,URINE 50 NG/ML NEGATIVE (NEGATIVE)
[2021-04-30] MEDS ORDERED: Acetaminophen 500 MG Tab PO ONE (09:01)
[2021-04-30] MEDS ORDERED: Iopamidol 755 Mg/ML 100 ML Bottle IVPUSH ONE (09:48)
--- NOTE | 2021-04-30 11:19 | CT ---
[id number] CT/CTA Head Neck EXAM: CT angiogram head and neck INDICATION: RULE OUT STROKE, MILD HEADACHE PERSISTING. COMPARISON: April 30, 2021. DISCUSSION: Aortic arch: The partially imaged aortic arch is normal in caliber with a conventional branching morphology. Right carotid artery: Normal in caliber. No significant stenosis or other abnormality. Left carotid artery: Normal in caliber. No significant stenosis or other abnormality. Right vertebral artery: Normal in caliber. No significant stenosis or other abnormality. Left vertebral artery: Normal in caliber. No significant stenosis or other abnormality. Basilar artery: Normal in caliber. No significant stenosis or other abnormality. [place]: origin of the posterior cerebral arteries bilaterally. Artifact limits assessment of the intracranial vessels. No vessel cut off, significant stenosis, aneurysm or vascular malformation is identified. Dural sinuses, jugular veins and cerebral veins: Limited evaluation of the cerebral veins, dural sinuses and jugular veins is unremarkable. Brain parenchyma: Unremarkable. The neck soft tissues: Unremarkable. Osseous structures: Mild disc degeneration C4-C5. IMPRESSION: 1. Negative exam. Pablo Ayoub MD 04/30/21 3075 Thank you for allowing us to participate in the care of your patient.
== END 2021-04-30 12:40 | disposition home or self-care (01) ==
LOC: VM.ED 07:03
DX: G43.911 Migraine, unspecified, intractable, with status migrainosus (principal); E66.9 Obesity, unspecified; Z88.8 Allergy status to other drugs, medicaments and biological substances; Z79.899 Other long term (current) drug therapy
CPT/HCPCS: 36415; 70450; 70496; 80048; 80305-QW; 80307; 81001; 82947; 84484; 85025; 85610; 85730; 93005; 93010; 96374; 96375; 99284; 99284-25; A9270-GY; J1200; J1885; J2765; J7030; Q9967

== ENCOUNTER 2021-05-01 01:10 | Emergency (ER) | payer MEDICARE, MEDICAID ==
[2021-05-01 02:05] VITALS: BP 121/81; PULSE 103
[2021-05-01 02:06] LABS: BARBITURATE SCREEN,URINE NEGATIVE (NEGATIVE); BENZODIAZEPINES SCREEN,URINE NEGATIVE (NEGATIVE); METHAMPHETAMINE SCREEN, URINE NEGATIVE (NEGATIVE); THC SCREEN,URINE 50 NG/ML NEGATIVE (NEGATIVE)
[2021-05-01 02:07] LABS: BUPRENORPHINE SCREEN,URINE NEGATIVE (NEGATIVE)
[2021-05-01 02:23] LABS: CHLORIDE,CL 105 mmol/L (98-107); SODIUM,NA 143 mmol/L (136-145)
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
[2021-05-01 02:24] LABS: ACETAMINOPHEN 0 ug/ml (10-30); ANION GAP 14.4 mmol/L (5-15)
== END 2021-05-01 03:21 ==
LOC: VM.ED 01:10 → SUPCPDRO 01:10 → VM.ED 03:21
DX: R44.0 Auditory hallucinations (principal); R45.89 Other symptoms and signs involving emotional state; F41.9 Anxiety disorder, unspecified; E66.9 Obesity, unspecified; Z79.899 Other long term (current) drug therapy; Z20.822 Contact with and (suspected) exposure to COVID-19; Z88.8 Allergy status to other drugs, medicaments and biological substances
CPT/HCPCS: 36415; 80053; 80143; 80179; 80305-QW; 80307; 81001; 85025; 99284; 99285; U0002

== ENCOUNTER 2021-05-25 21:12 | Emergency (ER) | payer MEDICARE, MEDICAID ==
[2021-05-25] MEDS ORDERED: Ketorolac 30 MG/ML SDV IM ONE (22:06)
--- NOTE | 2021-05-25 22:27 | EDM.PDOCBH ---
ED HPI GENERAL MEDICAL PROBLEM - General Chief Complaint: Behavioral/Psych Stated Complaint: HEADAChE AND LEG PAIN Time Seen by Provider: 05/25/21 21:30 Source of Information: Reports: Patient History Limitations: Reports: No Limitations - History of Present Illness INITIAL COMMENTS - FREE TEXT/NARRATIVE: Patient reports to ER with multiple complaints. Some psychologic in nature. Complaining of a headache. Does have history of migraines. Biologically female, transitioning to male. Having pain to the upper legs on both sides, left > right. Describes pain as sharp and stabbing. No history of DVT. Does sit a lot. He tells me multiple things with regards to psychiatric symptoms. Feels like he has snakes or tentacles trying to get out of his body, he complains of something trying to crack open the front of his head. Feels like a "body" or spirit is trying to violate him sexually and feels like a body is all around him. Also feels like something is trying to enter his ears. Not suicidal, not homicidal, no plan verbalized on asking. Onset: Today, Gradual Duration: Intermittent Location: Reports: Head, Lower Extremity, Left, Lower Extremity, Right Quality: Reports: Sharp, Stabbing Severity: Mild Improves with: Reports: Medication Associated Symptoms: Reports: Headaches, Other - Related Data Allergies Allergy/AdvReac Type Severity Reaction Status Date / Time amitriptyline Allergy Nightmares Verified 05/25/21 22:49 temazepam Allergy Other Verified 05/25/21 22:49 Home Meds: Home Meds Divalproex Sodium [Depakote ER] 750 mg PO BEDTIME 11/21/16 [History] Testosterone Cypionate 100 mg IM ASDIRECTED 11/21/16 [History] buPROPion [Wellbutrin XL] 300 mg PO BEDTIME 11/21/16 [History] Naproxen 500 mg PO Q12H 10/31/17 [History] Amphetamine/Dextroamphetamine [Adderall XR] 20 mg PO DAILY 04/15/20 [History] Famotidine 10 mg PO DAILY 08/19/20 [History] Nortriptyline HCl [Pamelor] 25 mg PO BEDTIME 08/19/20 [History] Past Medical History HEENT History: Reports: Impaired Vision Other HEENT History: myopia, astigmatism Gastrointestinal History: Reports: Cholelithiasis IN FLIGHT TECHNICIAN History: Reports: Dysfunctional Uterine Bleeding Other IN FL[employer] TECHNICIAN History: Patient states has had her period since 01/07 and it feels like it is not showing any sign of stopping. 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 Neurological History: Reports: Headaches, Chronic, Migraines, Seizure Psychiatric History: Reports: Anxiety, Depression, Emotional Problems, Suicidal Ideation Other Psychiatric History: gender dysphoria in adult Endocrine/Metabolic History: Reports: Obesity/BMI 30+ - Past Surgical History HEENT Surgical History: Reports: Adenoidectomy, Tonsillectomy GI Surgical History: Reports: Cholecystectomy Musculoskeletal Surgical History: Reports: Other (See Below) Other Musculoskeletal Surgeries/Procedures:: back surgery Social & Family History - Family History Family Medical History: Unobtainable - Caffeine Use Caffeine Use: Reports: None ED ROS GENERAL - Review of Systems Review Of Systems: See Below Constitutional: Reports: No Symptoms HEENT: Reports: No Symptoms Respiratory: Reports: No Symptoms Cardiovascular: Reports: No Symptoms Endocrine: Reports: No Symptoms GI/Abdominal: Reports: No Symptoms : Reports: Dysuria, Frequency, Other (sharp pains to vaginal area) Musculoskeletal: Reports: Leg Pain Skin: Reports: No Symptoms Neurological: Reports: Headache Psychiatric: Reports: Hallucinations. Denies: Homicidal Ideation, Suicidal Ideation Hematologic/Lymphatic: Reports: No Symptoms Immunologic: Reports: No Symptoms ED EXAM, BEHAVIORAL HEALTH - Physical Exam Exam: See Below Exam Limited By: No Limitations General Appearance: Alert, WD/WN, No Apparent Distress Eye Exam: Bilateral Eye: EOMI, PERRL Ears: Normal External Exam, Normal Canal, Hearing Grossly Normal, Normal TMs Nose: Normal Inspection, Normal Mucosa, No Blood Throat/Mouth: Normal Inspection, Normal Lips, Normal Teeth, Normal Gums, Normal Oropharynx, Normal Voice, No Airway Compromise Head: Atraumatic, Normocephalic Neck: Normal Inspection, Supple, Non-Tender, Full Range of Motion Respiratory/Chest: No Respiratory Distress, Lungs Clear, Normal Breath Sounds, No Accessory Muscle Use, Chest Non-Tender Cardiovascular: Normal Peripheral Pulses, Regular Rate, Rhythm, No Edema, No Gallop, No JVD, No Murmur, No Rub GI/Abdominal: Normal Bowel Sounds, Soft, Non-Tender, No Organomegaly, No Distention, No Abnormal Bruit, No Mass Extremities: Normal Inspection, Normal Range of Motion, Non-Tender, Normal Capillary Refill, No Pedal Edema Neurological: Alert, Normal Mood/Affect, CN II-XII Intact, Normal Cognition, Normal Gait, Normal Reflexes, No Motor/Sensory Deficits, Oriented x 3 Psychiatric: Alert, Normal Affect, Normal Cognition, Normal Mood, Auditory Hallucinations. No: Homicidal Thoughts, Suicidal Plan, Suicidal Thoughts Skin Exam: Warm, Dry, Intact, Normal color, No rash COURSE, BEHAVIORAL HEALTH COMP - Course Orders, Labs, Meds: Active Orders 24 hr Category Date Time Status D Dimer [D-DIMER QUANTITATIVE] [COAG] Stat Lab 05/25/21 22:05 Ordered UA RFX PRASAD IF INDIC POC [POC] Stat Lab 05/25/21 22:05 Ordered Medications Discontinued Medications Generic Name Dose Route Start Last Admin Trade Name Júnior PRN Reason Stop Dose Admin Ketorolac Tromethamine 30 mg 05/25/21 22:06 Ketorolac 30 Mg/Ml Sdv IM 05/25/21 22:07 ONETIME ONE Departure - Departure Time of Disposition: 23:02 Disposition: Home, Self-Care 01 Condition: Good Clinical Impression: Hallucinations, UTI (urinary tract infection) - Discharge Information *PRESCRIPTION DRUG MONITORING PROGRAM REVIEWED*: Not Applicable *COPY OF PRESCRIPTION DRUG MONITORING REPORT IN PATIENT FITO: Not Applicable Instructions: Urinary Tract Infection, Adult, [id number] Referrals: Michelle Hernández MD [Primary Care Provider] - Forms: ED Department Discharge Additional Instructions: 1 stay well hydrated 2 follow up with primary provider regarding lingering psychiatric complaints 3 take the entire course of antibiotics - macrobid take one tablet by mouth twice a day for 5 days 4 follow up as needed - Problem List & Annotations (1) Hallucinations SNOMED Code(s): 9852649 Code(s): R44.3 - HALLUCINATIONS, UNSPECIFIED Status: Acute Current Visit: Yes (2) UTI (urinary tract infection) SNOMED Code(s): 77219027 Code(s): N39.0 - URINARY TRACT INFECTION, SITE NOT SPECIFIED Status: Acute Current Visit: Yes Qualifiers: Urinary tract infection type: acute cystitis Hematuria presence: without hematuria Qualified Code(s): N30.00 - Acute cystitis without hematuria - My Orders Last 24 Hours: My Active Orders 05/25/21 22:05 D Dimer [D-DIMER QUANTITATIVE] [COAG] Stat UA RFX PRASAD IF INDIC POC [POC] Stat - Assessment/Plan Last 24 Hours: My Active Orders 05/25/21 22:05 D Dimer [D-DIMER QUANTITATIVE] [COAG] Stat UA RFX PRASAD IF INDIC POC [POC] Stat Plan: 1 stay well hydrated 2 follow up with primary provider regarding lingering psychiatric complaints 3 take the entire course of antibiotics - macrobid take one tablet by mouth twice a day for 5 days 4 follow up as needed
[2021-05-25 22:45] VITALS: BP 112/79; PULSE 100
[2021-05-25] MEDS ORDERED: Take Home: Nitrofurantoin Monohydrate/Macrocrystalline 100 MG, 2 Cap Pack PO ONE (22:48)
== END 2021-05-25 23:05 | disposition home or self-care (01) ==
LOC: VM.ED 21:12
DX: N39.0 Urinary tract infection, site not specified (principal); R44.0 Auditory hallucinations; E66.9 Obesity, unspecified; Z68.29 Body mass index [BMI] 29.0-29.9, adult; Z88.5 Allergy status to narcotic agent; Z88.8 Allergy status to other drugs, medicaments and biological substances
CPT/HCPCS: 36415; 81001; 85379; 87086; 96372; 99284; A9270-GY; J1885

== ENCOUNTER 2021-12-17 17:28 | Emergency (ER) | payer MEDICARE, MEDICAID ==
[2021-12-17] MEDS ORDERED: Take Home: Amoxicillin/Clavulanate K 875-125 MG Tab, 2 Tab Pack PO ONE (17:49)
[2021-12-17] MEDS ORDERED: Ketorolac 30 MG/ML SDV IM ONE (17:49)
[2021-12-17 18:32] VITALS: BP 142/88; PULSE 109
== END 2021-12-17 18:45 | disposition home or self-care (01) ==
LOC: VM.ED 17:28
DX: K04.7 Periapical abscess without sinus (principal); E66.9 Obesity, unspecified; Z68.30 Body mass index [BMI] 30.0-30.9, adult; Z88.8 Allergy status to other drugs, medicaments and biological substances
CPT/HCPCS: 96372; 99282; 99283; A9270-GY; J1885

== ENCOUNTER 2022-02-08 00:36 | Emergency (ER) | payer MEDICARE, MEDICAID ==
[2022-02-08] MEDS ORDERED: Ketorolac 10 MG Tab PO ONE (00:43)
[2022-02-08] MEDS ORDERED: Amoxicillin 875 MG Tab PO ONE (00:43)
[2022-02-08] MEDS ORDERED: Take Home: Amoxicillin 875 MG Tab, 2 Tab Pack PO ONE (00:48)
[2022-02-08 01:09] VITALS: BP 127/78; PULSE 68
== END 2022-02-08 01:00 | disposition home or self-care (01) ==
LOC: VM.ED 00:36
DX: K03.81 Cracked tooth (principal); K04.7 Periapical abscess without sinus; E66.9 Obesity, unspecified; Z88.8 Allergy status to other drugs, medicaments and biological substances; Z88.5 Allergy status to narcotic agent; Z68.32 Body mass index [BMI] 32.0-32.9, adult
CPT/HCPCS: 99282; 99283; A9270-GY

== ENCOUNTER 2022-02-21 16:36 | Emergency (ER) | payer MEDICARE, MEDICAID ==
[2022-02-21] MEDS ORDERED: Ketorolac 10 MG Tab PO ONE (17:04)
[2022-02-21] MEDS ORDERED: Amoxicillin 875 MG Tab PO ONE (17:04)
[2022-02-21 19:14] VITALS: BP 108/69; PULSE 80
== END 2022-02-21 17:16 | disposition home or self-care (01) ==
LOC: VM.ED 16:36
DX: K03.81 Cracked tooth (principal); K04.7 Periapical abscess without sinus; E66.9 Obesity, unspecified; Z68.30 Body mass index [BMI] 30.0-30.9, adult; Z88.5 Allergy status to narcotic agent; Z88.8 Allergy status to other drugs, medicaments and biological substances
CPT/HCPCS: 99282; 99283; A9270-GY

== ENCOUNTER 2022-02-23 04:35 | Emergency (ER) | payer MEDICARE, MEDICAID ==
[2022-02-23 04:59] VITALS: BP 128/79; PULSE 79
[2022-02-23] MEDS ORDERED: Ketorolac 30 MG/ML SDV IM ONE (04:59)
== END 2022-02-23 05:27 | disposition home or self-care (01) ==
LOC: VM.ED 04:35
DX: K08.89 Other specified disorders of teeth and supporting structures (principal); E66.9 Obesity, unspecified; Z68.39 Body mass index [BMI] 39.0-39.9, adult; Z88.8 Allergy status to other drugs, medicaments and biological substances; Z79.899 Other long term (current) drug therapy
CPT/HCPCS: 99283; J1885; 96372; 99282

== ENCOUNTER 2022-07-23 07:00 | Emergency (ER) | payer MEDICARE, MEDICAID ==
[2022-07-23] MEDS ORDERED: Take Home: Amoxicillin/Clavulanate K 875-125 MG Tab, 2 Tab Pack PO ONE (07:12)
[2022-07-23] MEDS ORDERED: Take Home: Acetaminophen/Codeine 300 MG/30 MG, 5 Tab Pack PO ONE (07:12)
[2022-07-23 07:35] VITALS: BP 137/86; PULSE 82
== END 2022-07-23 07:26 | disposition home or self-care (01) ==
LOC: VM.ED 07:00
DX: K08.89 Other specified disorders of teeth and supporting structures (principal); E66.9 Obesity, unspecified; Z88.8 Allergy status to other drugs, medicaments and biological substances; Z79.899 Other long term (current) drug therapy
CPT/HCPCS: 99282; A9270-GY

== ENCOUNTER 2023-07-04 13:20 | Emergency (ER) | payer MEDICARE, MEDICAID ==
[2023-07-04] MEDS ORDERED: Ketorolac 30 MG/ML SDV IVPUSH ONE (13:42)
[2023-07-04] MEDS ORDERED: Sodium Chloride 0.9% 1,000 ML IV ONE (13:43)
[2023-07-04] MEDS ORDERED: Ondansetron 4 MG/2 ML SDV IVPUSH ONE (13:43)
[2023-07-04] MEDS ORDERED: Ondansetron 4 MG in Sodium Chloride 0.9% 100 ML IV ONE (13:43)
[2023-07-04] MEDS ORDERED: Ondansetron 4 MG/2 ML SDV IM ONE (13:43)
[2023-07-04 13:48] LABS: BASOPHILS PERCENT AUTO 0.2 % (0.2-1.2); EOSINOPHILS ABSOLUTE AUTO 0.2 x10^3/uL (0.0-0.5); EOSINOPHILS PERCENT AUTO 1.4 % (0.0-4.0); HEMATOCRIT 45.6 % (33.0-47.0); HEMOGLOBIN 15.7 g/dL (12.0-16.0); IMMATURE GRAN ABSOLUTE AUTO 0.01 x10^3/uL (0.00-0.07); LYMPHOCYTES ABSOLUTE AUTO 3.2 x10^3/uL (1.0-4.8); LYMPHOCYTES PERCENT AUTO 27.6 % (25.0-50.0); MEAN CORPUSCULAR HEMOGLOBIN 30.5 pg (26.0-32.0); MEAN CORPUSCULAR HGB CONC 34.4 g/dL (32.0-36.0); MEAN CORPUSCULAR VOLUME 88.7 fL (78.0-93.0); MONOCYTES PERCENT AUTO 8.7 % (2.0-11.0); NEUTROPHILS ABSOLUTE AUTO 7.1 x10^3/uL (1.8-7.7); PLATELET COUNT,PLT 313 x10^3/uL (130-400); RED BLOOD CELL COUNT 5.14 x10^6/uL (4.00-5.50); WHITE BLOOD CELL COUNT,WBC 11.5 x10^3/uL (4.0-10.0)
[2023-07-04 14:03] LABS: A/G RATIO 1.15; ALANINE AMINOTRANSFERASE,ALT 82 U/L (14-59); ALBUMIN 3.8 g/dL (3.4-5.0); ALKALINE PHOSPHATASE 72 U/L (46-116); ASPARTATE AMNIOTRANSFERASE,AST 34 U/L (15-37); BILIRUBIN TOTAL 0.5 mg/dL (0.2-1.0); BLOOD UREA NITROGEN,BUN 17 mg/dL (7-18); CALCIUM 9.6 mg/dL (8.5-10.1); CARBON DIOXIDE,CO2 27 mmol/L (21-32); CHLORIDE,CL 104 mmol/L (98-107); CREATININE 1.3 mg/dL (0.55-1.02); GLUCOSE RANDOM 97 mg/dL (70-99); LIPASE 68 U/L (19-71); POTASSIUM,K 3.7 mmol/L (3.5-5.1); PROTEIN TOTAL,TP 7.1 g/dL (6.4-8.2); SODIUM,NA 142 mmol/L (136-145)
[2023-07-04 14:05] LABS: ANION GAP 14.7 mmol/L (5-15); ESTIMATED GFR 58 mL/min (>=60)
[2023-07-04 14:45] VITALS: BP 136/76; PULSE 89
[2023-07-04 15:01] LABS: BILIRUBIN,URINE NEGATIVE (NEGATIVE); COLOR,URINE DARK YELLOW (YELLOW); GLUCOSE,URINE NEGATIVE (NEGATIVE); KETONES,URINE TRACE mg/dL (NEGATIVE); LEUKOCYTE ESTERASE,URINE NEGATIVE (NEGATIVE); NITRITE,URINE NEGATIVE (NEGATIVE); OCCULT BLOOD,URINE SMALL (NEGATIVE); PROTEIN,URINE NEGATIVE (NEGATIVE); UROBILINOGEN,URINE 0.2 EU/dL (0.2)
[2023-07-04 15:11] LABS: APPEARANCE,URINE SLIGHTLY CLOUDY (CLEAR)
[2023-07-04 15:12] LABS: BACTERIA,URINE OCCASIONAL /HPF (NOT SEEN); MUCUS,URINE MODERATE /LPF (NOT SEEN); WBC,URINE 0-5 /HPF (NOT SEEN)
== END 2023-07-04 15:38 | disposition home or self-care (01) ==
LOC: VM.ED 13:20
DX: N13.2 Hydronephrosis with renal and ureteral calculous obstruction (principal); E66.9 Obesity, unspecified; Z68.37 Body mass index [BMI] 37.0-37.9, adult; Z79.899 Other long term (current) drug therapy; Z88.8 Allergy status to other drugs, medicaments and biological substances; Z90.49 Acquired absence of other specified parts of digestive tract
CPT/HCPCS: 74176; 80053; 81001; 83690; 85025; 96361; 96374; 96375; 99284; J1885; J2405; J7030

== ENCOUNTER 2023-10-27 23:40 | Emergency (ER) | payer MEDICARE, MEDICAID ==
[2023-10-28] MEDS: cefTRIAXone 1 GM, Lidocaine 1% 2.1 ML IM ONE (00:10)
[2023-10-28 02:37] VITALS: BP 113/68; PULSE 90
== END 2023-10-28 00:26 | disposition home or self-care (01) ==
LOC: VM.ED 23:40
DX: K04.7 Periapical abscess without sinus (principal); E66.9 Obesity, unspecified; Z79.899 Other long term (current) drug therapy; Z88.8 Allergy status to other drugs, medicaments and biological substances
CPT/HCPCS: 96372; 99282; 99283; J0696; J3490